=== PATIENT | female | born 1935 | race Caucasian/White ===

== ENCOUNTER 2019-12-20 13:10 | Inpatient (IN) | payer MEDICARE, SELFPAY ==
[2019-12-20] VITALS (17 sets, daily range): BP systolic 118–160; BP diastolic 61–87; PULSE 68–761; RESP 11–976; TEMP 36.3–37.9; O2SAT 19–97; BMI 22.1; BMI 19.6
--- NOTE | 2019-12-20 | DI.RAD.S_ITS ---
PROCEDURE: XR PELVIS 1-2V INDICATIONS: INTER-OP PELVIS TECHNIQUE: 2 intraoperative views of the pelvis and hip acquired. COMPARISON: [facility], , XR PELVIS 1-2V, 12/20/2019, 13:52. FINDINGS: Bones: Intraoperative devices prior to placement of arthroplasty prostheses are in expected positions. Soft tissues: Overlying surgical retractors are present, along with other intraoperative changes. IMPRESSION: 1. Limited intraoperative study obtained for surgical guidance demonstrates partial placement of a right hip prosthesis. Dictated by: David Alvarez M.D. on 12/20/2019 at 19:12 Approved by: David Alvarez M.D. on 12/20/2019 at 19:13
--- NOTE | 2019-12-20 13:43 | ED.FALL ---
HPI - Fall General Chief Complaint: Fall Stated Complaint: Fell last night, hips hurt, can't walk Time Seen by Provider: 12/20/19 13:24 Source: family () Mode of arrival: Wheelchair Limitations: no limitations History of Present Illness HPI Narrative: Patient is an 84-year-old female with a history of dementia here with her for evaluation of injuries that she sustained when she fell yesterday evening. Patient's was the 1 who provided all the HPI. Given the patient's history of dementia she was unable to provide any history. Patient's states that last evening the patient turned to her left hand lost her balance and fell landing on her right hip. She did not hit her head. There was no loss of consciousness. This fall was witnessed by her . states he had help the patient up. She was able to walk somewhat but she was very unstable last evening. He had to help her to the bathroom which he states that he has to do sometimes so was not all that concerned about this aspect of the injury. He stated that this morning she slept until 1000 hours which is late for her. When she woke up she was unable to stand. He had to go get a wheelchair to help her get around the house. Secondary to the inability to stand brought her into the emergency department for evaluation. Related Data Home Medications Medication Instructions Recorded Confirmed amlodipine [Norvasc] #0 12/17/16 gemfibrozil #0 12/17/16 levothyroxine [Synthroid] #0 12/17/16 Allergies Allergy/AdvReac Type Severity Reaction Status Date / Time hydrochlorothiazide Allergy Severe Unverified 05/22/17 12:29 [HYDROCHLOROTHIAZIDE] lisinopril [LISINOPRIL] AdvReac Intermediate COUGH Unverified 05/22/17 12:29 Review of Systems Review of Systems Narrative: Provided by ENT Ears, Nose, Mouth, and Throat: Reports disequilibrium Cardiovascular Cardiovascular: Denies dyspnea Respiratory Respiratory: Denies cough and Denies dyspnea Gastrointestinal Gastrointestinal: Denies change in bowel habits and Denies vomiting Musculoskeletal Comments: Hip pain Integumentary/Breasts Skin/Breast: Denies lesions and Denies rash Neurologic Neurologic: Denies behavioral changes and Reports disequilibrium Psychiatric Psychiatric: Denies behavioral changes Hematologic/Lymphatic Hematologic/Lymphatic: Denies easy bleeding and Denies easy bruising Patient History Medical History Cholelithiasis (Inactive) Dementia (Inactive) Depression (Inactive) Hyperlipemia (Inactive) Hypertension (Inactive) Hypothyroid (Inactive) Pancreatitis (Inactive) Social History Smoking Status: Never smoker Smoking Status: Never smoker alcohol intake frequency: 0-2 drinks per day Substance Use Type: does not use Exam Initial Vital Signs Initial Vital Signs: Vital Signs Temperature 99.5 F 12/20/19 13:37 Pulse Rate 88 12/20/19 13:37 Respiratory Rate 20 12/20/19 13:37 Blood Pressure 147/78 H 12/20/19 13:37 Pulse Oximetry 91 12/20/19 13:37 Const General: healthy appearing Limitations: other limitations (Dementia) HENMT Head: normal to inspection and normocephalic Resp Effort & Inspection: normal respiratory effort Auscultation: clear to auscultation bilaterally Cardio Rate: regular rate Rhythm: regular rhythm GI Inspection: non-distended Palpation: soft Skin Lesions: no lesions Rashes: no rashes Neuro General: patient alert and patient awake Cognition: abnormal cognition Extrem General: normal to inspection Other: Patient able to flex and extend bilateral ankles and knees without any discomfort. She did not appear to have any discomfort with palpation of her hips. I was able to flex and extend and internally and externally rotate bilateral hips without apparent pain. Psych Appearance: grossly normal and well kempt Scores GCS [place] coma scale eye opening: Spontaneous Ahsan coma scale verbal response: Words [place] coma scale motor response: Obey commands Ahsan coma scale total score: 13 Course Orders Ordered: ED Orders 12/20/19 13:44 XR pelvis 1-2V Stat 12/20/19 14:26 XR hip w pel if done RT 2V Stat 12/20/19 14:58 Consult to Orthopedic Surgery Stat 12/20/19 15:30 Basic Metabolic Panel Stat Complete Blood Count AUTO DIFF Stat 12/20/19 15:36 COVID19 -ED/INPAT/OR/L&D Stat Sodium Chloride (Normal Saline 0.9%) 1,000 mls @ 100 mls/hr IV CONT WILLARD Vital Signs Vital signs: Vital Signs - 8 hr 12/20/19 13:37 Temperature 99.5 F Pulse Rate 88 Respiratory Rate 20 Blood Pressure 147/78 H Pulse Oximetry 91 MDM - Fall Medical Records Attestation: I reviewed the patient's medical records. Lab Data Attestation: I reviewed the patient's lab results. Result diagrams: 12/20/19 15:30 12/20/19 15:30 Labs: Lab Results 12/20/19 12/20/19 12/20/19 Range/Units 15:30 15:30 15:36 WBC 8.8 (4.5-11.0) X10^3/uL RBC 5.05 (4.0-5.2) X10^6/uL Hgb 13.7 (12.0-16.0) g/dL Hct 41.0 (36-46) % MCV 81.3 (80-100) fL MCH 27.2 (26-34) PG MCHC 33.4 (30-36) % RDW 15.0 H (11.6-14.8) % Plt Count 234 (150-400) X10^3/uL Neut % (Auto) 82.9 H (50-75) % Lymph % (Auto) 9.8 L (25-40) % [place] % (Auto) 5.1 (3-14) % Eos % (Auto) 1.2 L (2-4) % Baso % (Auto) 1.0 (0-2) % Neut # (Auto) 7300 H (3714-0651) /uL Lymph # (Auto) 900 L (2920-2116) /uL [place] # (Auto) 400 (0-900) /uL Eos # (Auto) 100 (0-450) /uL Baso # (Auto) 100 (0-100) /uL Sodium 140 (137-145) mmol/L Potassium 3.7 (3.4-5.1) mmol/L Chloride 110 H (98-107) mmol/L Carbon Dioxide 27 (22-32) mmol/L BUN 21 H (7-17) mg/dL Creatinine 1.10 H (0.52-1.04) mg/dL Estimated GFR 47.3 L (>60) mL/min BUN/Creatinine Ratio 19.1 (6-22) Glucose 104 (80-110) mg/dL Calcium 9.7 (8.4-10.2) mg/dL COVID-19 PCR Negative (Negative) Imaging Data Extremity x-ray #1: Radiologist's Impression: [address] [id number] XRay Report Signed Patient: Karla Delatorre [facility]#: [id number] : 6Acct:[id number] Age/Sex: 84 / FDate of Service: 12/20/19 Loc: ED Accession Number: [id number] Procedure: XR pelvis 1-2V Ordering Provider: Torres Townsend D.O. PROCEDURE: XR PELVIS 1-2V INDICATIONS: pain after fall TECHNIQUE: 2 view(s) of the pelvis acquired. COMPARISON: None. FINDINGS: Bones: Mildly impacted subcapital right femoral neck fracture. Degenerative changes of the lower lumbar spine and left hip joint. No suspicious bony lesions. Soft tissues: Visualized bowel gas pattern is normal. No suspicious soft tissue calcifications. IMPRESSION: Mildly impacted right subcapital femoral neck fracture. Dictated by: Alireza Yung M.D. on 12/20/2019 at 13:19 Approved by: Alireza Yung M.D. on 12/20/2019 at 13:20 Extremity x-ray #2: Radiologist's Impression: [address] [address] XRay Report Signed Patient: Karla Delatorre [facility]#: [id number] : 6Acct:[id number] Age/Sex: 84 / FDate of Service: 12/20/19 Loc: ED Accession Number: [id number] Procedure: XR hip w pel if done RT 2V Ordering Provider: Torres Townsend D.O. PROCEDURE: XR HIP W PEL IF DONE RT 2V INDICATIONS: right fem neck fx TECHNIQUE: AP pelvis with lateral view(s) of the right hip(s). COMPARISON: None. FINDINGS: Bones: There is a mildly impacted right subcapital femoral neck fracture. Degenerative changes of the bilateral hips. Pelvic ring appears intact. No suspicious bony lesions. Soft tissues: The visualized bowel gas pattern is normal. No suspicious soft tissue calcifications. IMPRESSION: Mildly impacted right subcapital femoral neck fracture. Dictated by: Alireza Yung M.D. on 12/20/2019 at 13:46 Approved by: Alireza Yung M.D. on 12/20/2019 at 13:48 MDM Narrative Medical decision making narrative: This did appear to be a mechanical fall. She appears to be at baseline mental status per the who is at bedside. Initially patient seemed to not have any discomfort with movement or palpation of her hips however given the fact she cannot stand an x-ray was obtained. This did show an impacted right-sided femoral neck fracture. I did discuss the case with Dr. harmon with orthopedics who recommended making the patient NPO and admitting to the medicine service for surgery. I then discussed the case with Dr. oliver who is on-call for the patient's primary provider who will admit for further evaluation treatment. I did discuss the findings of the x-ray with the patient's at bedside. He expressed understanding and agreement. Discharge Plan Departure Patient Disposition: Admitted As Inpatient Clinical Impression: Fracture of femoral neck, right Qualifiers: Encounter type: initial encounter Fracture type: closed Qualified Code(s): S72.001A - Fracture of unspecified part of neck of right femur, initial encounter for closed fracture Dementia Qualifiers: Dementia type: unspecified type Dementia behavioral disturbance: without behavioral disturbance Qualified Code(s): F03.90 - Unspecified dementia without behavioral disturbance
--- NOTE | 2019-12-20 13:47 | PC.NURSE ---
Pt is unable to provide history due to dementia. Pt unable to participate in pain assessment.
--- NOTE | 2019-12-20 14:26 | DI.RAD.S_ITS ---
PROCEDURE: XR HIP W PEL IF DONE RT 2V INDICATIONS: right fem neck fx TECHNIQUE: AP pelvis with lateral view(s) of the right hip(s). COMPARISON: None. FINDINGS: Bones: There is a mildly impacted right subcapital femoral neck fracture. Degenerative changes of the bilateral hips. Pelvic ring appears intact. No suspicious bony lesions. Soft tissues: The visualized bowel gas pattern is normal. No suspicious soft tissue calcifications. IMPRESSION: Mildly impacted right subcapital femoral neck fracture. Dictated by: Alireza Yung M.D. on 12/20/2019 at 13:46 Approved by: Alireza Yung M.D. on 12/20/2019 at 13:48
[2019-12-20 15:41] LABS: Add Manual Diff / Slide Review NO; Basophils Absolute Auto 100 /uL (0-100); Eosinophils Absolute Auto 100 /uL (0-450); Eosinophils Percent Auto 1.2 % (2-4); Hemoglobin 13.7 g/dL (12.0-16.0); Lymphocytes Absolute Auto 900 /uL (1100-4500); Lymphocytes Percent Auto 9.8 % (25-40); Mean Corpuscular HGB Conc 33.4 % (30-36); Mean Corpuscular Hemoglobin 27.2 PG (26-34); Mean Corpuscular Volume 81.3 fL (80-100); Monocytes Absolute Auto 400 /uL (0-900); Monocytes Percent Auto 5.1 % (3-14); Neutrophils Absolute Auto 7300 /uL (1500-7000); Neutrophils Percent Auto 82.9 % (50-75); Platelet Count 234 X10^3/uL (150-400); Red Blood Cell Count 5.05 X10^6/uL (4.0-5.2); White Blood Cell Count 8.8 X10^3/uL (4.5-11.0)
[2019-12-20 16:02] LABS: BUN Creatinine Ratio 19.1 (6-22); Blood Urea Nitrogen 21 mg/dL (7-17); Calcium 9.7 mg/dL (8.4-10.2); Carbon Dioxide 27 mmol/L (22-32); Chloride 110 mmol/L (98-107); Estimated Glomerular Filt Rate 47.3 mL/min (>60); Glucose 104 mg/dL (80-110); HEMOLYSIS < 15 (0-50); Potassium 3.7 mmol/L (3.4-5.1); Sodium 140 mmol/L (137-145)
[2019-12-20 16:10] LABS: COVID19 -Nasal RAPID Negative (Negative)
--- NOTE | 2019-12-20 17:17 | P.HP_ITS ---
History of Present Illness History of Present Illness Date Patient Seen: 12/20/19 Time Patient Seen: 17:17 Chief complaint: Fell last night, hips hurt, can't walk Narrative: Patient is an 84-year-old female with a history of dementia here with her for evaluation of injuries that she sustained when she fell yesterday evening. Suraj is uanbel to provide history due to dementia. Patient's provided all the HPI. Patient's states that last e vening the patient turned to her left hand lost her balance and fell landing on her right hip. She did not hit her head. There was no loss of consciousness. This fall was witnessed by her . states he had help the patient up. She was able to walk somewhat but she was very unstable last evening. He had to help her to the bathroom which he states that he has to do sometimes so was not all that concerned about this aspect of the injury. When she woke up she was unable to stand. She is a household and community ambulator without assisstive devices. Patient History Medical History Cholelithiasis (Inactive) Dementia (Inactive) Depression (Inactive) Hyperlipemia (Inactive) Hypertension (Inactive) Hypothyroid (Inactive) Pancreatitis (Inactive) Family & Social History Social History: household members spouse Prior Living Arrangements House Safety & Behavioral: Feels Safe in Current Yes Environment Been Physically Hurt or No Threatened By a Person Suicidal Ideation Description None Suicide Plan Description No Plan Tobacco & Substance use: Smoking Status Never smoker alcohol intake current alcohol intake frequency holiday/special occasion Substance Use Type does not use Meds Home Medications and Allergies Home Medications Medication Instructions Recorded Confirmed Type amlodipine [Norvasc] #0 12/17/16 History gemfibrozil #0 12/17/16 History levothyroxine [Synthroid] #0 12/17/16 History Allergies Allergy/AdvReac Type Severity Reaction Status Date / Time hydrochlorothiazide Allergy Severe Unverified 05/22/17 12:29 [HYDROCHLOROTHIAZIDE] lisinopril [LISINOPRIL] AdvReac Intermediate COUGH Unverified 05/22/17 12:29 Exam Vital Signs (past 8 hours): - 12/20/19 13:37 Temperature 99.5 F Pulse Rate 88 Respiratory Rate 20 Blood Pressure 147/78 H Pulse Oximetry 91 Oxygen Delivery Method Room Air Narrative Exam Narrative: NV intact RLE, no skin breaks over the right hip. Objective Labs Result Diagrams: 12/20/19 15:30 12/20/19 15:30 Labs: Laboratory Results - last 24 hr 12/20/19 12/20/19 12/20/19 15:30 15:30 15:36 WBC 8.8 RBC 5.05 Hgb 13.7 Hct 41.0 MCV 81.3 MCH 27.2 MCHC 33.4 RDW 15.0 H Plt Count 234 Neut % (Auto) 82.9 H Lymph % (Auto) 9.8 L [place] % (Auto) 5.1 Eos % (Auto) 1.2 L Baso % (Auto) 1.0 Neut # (Auto) 7300 H Lymph # (Auto) 900 L [place] # (Auto) 400 Eos # (Auto) 100 Baso # (Auto) 100 Sodium 140 Potassium 3.7 Chloride 110 H Carbon Dioxide 27 BUN 21 H Creatinine 1.10 H Estimated GFR 47.3 L BUN/Creatinine Ratio 19.1 Glucose 104 Calcium 9.7 COVID-19 PCR Negative Assessment & Plan Assessment & Plan narrative: Patient is a 84 yo pleasantly demented female. She had a GLF yesterday evening witnessed by her . She was able to minimally ambulate that evening but has been unable to ambulate today. She was brought to the ER for evaluation where a right valgus imapceted femoral neck fracture was identified. Patient would benefit from hemiarthropalsty due to ability to weight bear immediately. In addition the fracture angle is steep which increases the risk of nonunion/hardware failure. I discussed the risks and benefits of surgery with the patient and her (whom signs her consents). Risks include but are not limited to infection, dislocation, damage to local structures such as vessels and nerves, need for future surgery, iatrogenic fracture, DVT, PE, etc. - OCTOR for right hip hemiarthoplasty - NWB RLE - NPO Time Spent With Patient Time with patient: 15-24 minutes Quality VTE Deep Vein Thrombosis/Pulmonary Embolism Present on Admission: No
--- NOTE | 2019-12-20 17:27 | PM.PREOP ---
Pre-operative Note COVID-19 COVID-19 status: Negative Result date/Date tested (Pos, Neg/Pending): 12/20/19 Interval Note History & Physical reviewed/Exam performed by Physician: Yes Changes to H&P: No H&P completed within 30 days and has changed as indicated here:: Plan for right hip hemiarthroplasty
[2019-12-20] MEDS: LACTATED RINGERS 1,000 ML 42 ML IV ×2 (17:33→19:02)
[2019-12-20] MEDS: CEFAZOLIN 2 GM/100 ML FROZ.PIGGY IV (17:36)
--- NOTE | 2019-12-20 17:38 | SUR.HOLD ---
1725 TO Pacu for OR hold, prepared for surgery and took one set of VS. did not have time for anything else. Anesthesia spoke with patient and spouse.
--- NOTE | 2019-12-20 17:59 | SUR.HOLD ---
1730 late entry Pt had on a thin, yellow band with clear stones. Removed and given directly to her in PACU holding.
[2019-12-20] MEDS: TRANEXAMIC ACID 1,000 MG VIAL 1000 MG IV ×2 (18:08→19:04)
--- NOTE | 2019-12-20 18:15 | SUR.OPER ---
Lateral on padded OR bed. Gel axillary roll. Arms secured on padded armboard with pillow supporting top arm. Padded hip positioner braces x4 - anterior and posterior chest and pelvis. Additional gel pad used anterior pelvis. Gel pad under bottom leg from knee to foot and secured with tape over sheet.
[2019-12-20] MEDS: KETOROLAC 30 MG/ML VIAL IV (18:23)
[2019-12-20] MEDS: MORPHINE 4 MG/ML INJ INJ (18:23)
[2019-12-20] MEDS: ROPIVACAINE 0.5% PF 30ML 60 ML INJ (18:23)
--- NOTE | 2019-12-20 19:40 | P.OP_ITS ---
Operative Date/Time/Diagnoses Date of procedure: 12/20/19 Time of procedure: 19:40 Pre-op diagnosis: right intra-capsular femoral neck fracture Post-op diagnosis: same Procedure & Clinicians Procedure: Right hip hemiarthroplasty Same procedure as scheduled: Yes Indications: Patient sustained a right intracapsular valgus impacted femoral neck fracture after ground level fall. Due to the high angle there is risk for nonunion and or hardware failure so hemiarthroplasty was selected in addition patient has dementia and would not be able to be partial weight-bearing. Surgeon: Kash Leo Network Security Officer: Domingo Golden Anesthesia Type: General Operative Notes Findings: Valgus impacted right femoral neck fracture, intracapsular hematoma Closure Type: primary Specimen(s): none sent Prosthetic devices, grafts, tissues, transplants, or devices: [employer] Synergy size 14 femoral stem Bipolar head 50 x 28 +0 mm Estimated Blood Loss (mL): 200 Procedure in detail: Patient was met up on the floors. I had a long discussion with the patient and her regarding her fracture pattern as well as possible treatment options. Patient has dementia and her signed her consents for her. I discussed with them the risks and benefits of right hip hemiarthroplasty including the risk of infection, dislocations, need for future surgery, incomplete relief of symptoms, iatrogenic injury, fracture, DVT, PE, , etc.. of patient demonstrates understanding of the risks and benefits of a right hemiarthroplasty for femoral neck fracture. Both agreed to proceed. The right hip was then marked. Patient was brought back in the operating room where she was transferred onto the operating room table. She was induced under general anesthesia. She was then placed in left lateral decubitus position all bony prominences were well padded. The right lower extremity then prepped and draped in normal sterile fashion. A surgical time-out was performed verifying the site and side of surgery as well as the name of the patient. A 10 cm long incision starting at the midpoint of the greater trochanter aiming proximally 40? superior-posterior was made in the skin using a 10. Blade. Electrocautery was used down to the level of the ITB band superior gluteal fascia. A new 10. Blade was then used to incise the superior gluteal fashion the ITB band. A Cobra was then placed underneath the gluteus medius and Meyerding was placed posteriorly to give us good exposure to the short external rotators. A curved osteotome was then placed underneath the piriformis and piriformis was released off the back of the greater trochanter piriformis was then tagged and the other short external rotators were then released down to the level of the quadratus femoris. The gluteus minimus was then elevated a Cobra was placed underneath the gluteus minimus this gave us good capsular exposure and L-shaped capsulotomy was then performed in accordance capsulotomy was tagged with a FiberWire suture. We encountered dark hematoma at this point. This was suctioned away the hip was then dislocated and the femoral neck fracture was viewed. A freshen up femoral neck cut was then performed using oscillating saw blade in the femoral head was removed. Bony fragments were removed from the acetabular cup. The femoral neck elevator was then placed underneath the anterior aspect of the femoral neck. We began hand reaming with straight reamers and then she got to a size 12. The began broaching with a size 8 broach followed sequentially up to a size 12. The calcar planed off the size 12 broach and standard neck length trial was placed followed by a 50+ 0 head hip was then dislocated and found to be adequately stable through range of motion including position of sleep as well as flexion and 90? and internal rotation to 70?. X-rays were taken to verify leg length as well as to confirm canal fit of the femoral stem. The stem was in varus and leg length appeared couple mm short. Trial components were then removed I then used a lateralized Reamer followed by hand reamers up to a size 14. Then broached up to size 14 broach and again trialed with a size standard offset neck length with a 50+ 0 head this was stable in position of sleep as well as flexion to 90? and internal rotation to approximately 75 ?. Trial components were removed a size 14 final stem was selected and placed. The stem sat up 1-2 mm from our broach height. Selected a 50+ 0 bipolar head which was then malleted into place on the trunnion. The hip was reduced to final time the hip was then thoroughly irrigated with normal saline followed by injection of local anesthetic into the capsule and the periarticular soft tissues followed by closure of the capsulotomy with a running Ethibond suture and removal of the FiberWire tag suture. The piriformis did not have enough length to pass a limb through the greater trochanter so was repaired back the abductor tendon. The ITB band was closed using 1. Vicryl interrupted fashion followed by running Vicryl in the superior gluteal fascia. A running 1. Vicryl was then used in the fat layer followed by interrupted subcutaneous 2-0 Vicryl followed by nacho on skin an Aquacel dressing Complications: none Post-operative Condition: stable Disposition: PACU Plan for aftercare: Weightbearing as tolerated right lower extremity, posterior hip precautions, 24 hours postop antibiotics, aspirin 81 mg b.i.d. for 6 weeks for DVT prophylaxis.
--- NOTE | 2019-12-20 19:41 | SUR.PHASEI ---
1924 to PACU, sleeping, resp even and regular, oxygen for low sat. skin warm and dry.
--- NOTE | 2019-12-20 19:53 | SUR.PHASEI ---
desat to 90%; arouses to voice, able to wiggle R toes (Dr Leo checked on the patient), opens eyes slightly. Does not respond to 'take a deep breathe'. Sat did not increase; place on non-rebreather mask, sat up to 94% on 15 liters.
--- NOTE | 2019-12-20 20:11 | SUR.PHASEI ---
Report called to Vanessa, she is comfortable accepting patinet on 11L non-rebreather mask
--- NOTE | 2019-12-20 20:25 | SUR.PHASEI ---
2014 to room 215 on O2 at 15L non-rebreather mask (other setting on the tank was lower than 11L) - to 11L in the room. Report updates, spouse in the room. VSS. SCD''s on. Bed down and locked, DIANA Rose present, finishing settling patient. Staff informed that her has her ring. He acknowledged it and decided to go home -- states that he has her ring, clothing bag, and meds. No questions from staff or spouse. Pt. opens eyes to voice, is not talking
--- NOTE | 2019-12-20 20:26 | PC.NURSE ---
Patient back from PACU at 2019. Drowsy but wakes easily. On None re-breather 15L sats 97%. Drsg to Rt side of hip CDI, hip wedge in place between legs and secured to lower legs. SCD's placed. Patient was in room when patient arrived, but left shortly after. took patients clothes, home medications and wedding ring. Patient denies any pain at this time.
[2019-12-20 21:26] LABS: Add Manual Diff / Slide Review NO; Basophils Absolute Auto 0 /uL (0-100); Basophils Percent Auto 0.4 % (0-2); Eosinophils Absolute Auto 0 /uL (0-450); Eosinophils Percent Auto 0.4 % (2-4); Hematocrit 38.6 % (36-46); Hemoglobin 12.7 g/dL (12.0-16.0); Lymphocytes Absolute Auto 400 /uL (1100-4500); Lymphocytes Percent Auto 4.4 % (25-40); Mean Corpuscular HGB Conc 33.1 % (30-36); Mean Corpuscular Hemoglobin 27.1 PG (26-34); Mean Corpuscular Volume 82.1 fL (80-100); Monocytes Absolute Auto 300 /uL (0-900); Monocytes Percent Auto 2.8 % (3-14); Neutrophils Absolute Auto 8400 /uL (1500-7000); Platelet Count 194 X10^3/uL (150-400); Red Cell Distribution Width 14.5 % (11.6-14.8); White Blood Cell Count 9.1 X10^3/uL (4.5-11.0)
[2019-12-20] MEDS: ACETAMINOPHEN 325 MG TABLET 650 MG PO (22:46)
[2019-12-20] MEDS: DOCUSATE 100 MG CAPSULE PO (22:46)
[2019-12-20] MEDS: ASPIRIN EC 81 MG TABLET PO (22:46)
[2019-12-20] MEDS: LACTATED RINGERS 1,000 ML 75 ML IV (22:47)
[2019-12-21] VITALS (10 sets, daily range): BP systolic 105–146; BP diastolic 58–85; PULSE 72–119; RESP 14–24; TEMP 36.3–37.1; O2SAT 89–100
--- NOTE | 2019-12-21 01:50 | PC.NURSE ---
Addendum entered by Karla Patel R.N. 12/21/19 06:39: O2 sat this morning is 96% on 2L/min oxygen so decreased to 1L/min Original Note: Patient is alert but not verbally responding to questions; will smile and make laughing type sound. Did not follow direction. Breath sounds diminished with shallow respirations. Is on oxygen at 3L/min with sat currently at 98% so decreased oxygen to 2L/min and will continue to monitor and titrate as able. HRR. BT hypoactive; abdomen is soft. Indwelling catheter is patent; urine is clear yellow. Aquacel dressing to right hip is intact with couple spots of drainage noted. Wearing foam abductor wedge between legs. Needing to be repositioned q2h as not doing this by herself. Wearing bilateral calf SCD's. Pedal pulses strong and feet warm to touch. FLACC score is 0. Fall risk score is high at RN discretion and bed alarm is activated.
[2019-12-21] MEDS: CEFAZOLIN 2 GM/100 ML FROZ.PIGGY IV ×2 (02:03→09:49)
[2019-12-21] MEDS: LEVOTHYROXINE 50 MCG TABLET PO (05:36)
[2019-12-21 05:43] LABS: Hematocrit 34.4 % (36-46); Hemoglobin 11.4 g/dL (12.0-16.0)
[2019-12-21 05:51] LABS: BUN Creatinine Ratio 19.2 (6-22); Blood Urea Nitrogen 19 mg/dL (7-17); Calcium 8.9 mg/dL (8.4-10.2); Carbon Dioxide 24 mmol/L (22-32); Chloride 109 mmol/L (98-107); Estimated Glomerular Filt Rate 53.4 mL/min (>60); Glucose 122 mg/dL (80-110); HEMOLYSIS < 15 (0-50); Potassium 3.7 mmol/L (3.4-5.1); Sodium 137 mmol/L (137-145)
[2019-12-21] MEDS: ACETAMINOPHEN 325 MG TABLET 650 MG PO ×3 (08:22→20:40)
[2019-12-21] MEDS: DOCUSATE 100 MG CAPSULE PO ×2 (08:22→20:40)
[2019-12-21] MEDS: ASPIRIN EC 81 MG TABLET PO ×2 (08:22→20:40)
[2019-12-21] MEDS: AMLODIPINE 5 MG TABLET PO (08:22)
[2019-12-21] MEDS: gemfibroziL 600 MG TABLET PO ×2 (08:23→17:21)
--- NOTE | 2019-12-21 08:35 | PM.HP.1 ---
History of Present Illness History of Present Illness Date Patient Seen: 12/21/19 Time Patient Seen: 08:37 Date of Onset of Symptoms: 12/19/19 Chief complaint: Fell last night, hips hurt, can't walk Narrative: 84-year-old female who is followed by Dr. Buck as an outpatient for hypertension, hyperlipidemia and hypothyroidism is brought to the ER due to inability to walk after fall 12 hours prior. Patient was found to have a hip fracture and was taken to the OR to have this fixed. Patient lives with her in a home here in in a [place] and otherwise denies any complaints. She had an unwitnessed fall she states that she fell backwards. This history is per the and the ER report. They deny any history of loss of consciousness or hitting her head or other injuries. It does not appear that she was syncopal or presyncopal. She has otherwise been in her usual state health. She has had no fever, chills, vomiting, diarrhea. She has had no rashes. She has had no orthopedic complaints. She has never had previous injury to her hips. She denies chest pain or shortness of breath or cough or palpitations. Past medical history: 1. Hypertension 2. Hyperlipidemia 3. Hypothyroidism 4. Moderate to severe dementia based on exam today Medications Amlodipine 5 mg daily Gemfibrozil 600 mg daily Levothyroxine 50 mcg daily Allergies hydrochlorothiazide Lisinopril which causes a cough Past surgical history: Unremarkable Helped her to behavior: Patient is active in her own on any regular basis. Patient does not smoke and never was a smoker. Patient occasionally uses alcohol. But not on a regular basis. Social history: Patient lives in a home with her here and [place] Family history: Unable to obtain at this time but no pertinent family history found in the chart or her previous dictations. Patient History Medical History Cholelithiasis (Inactive) Dementia (Inactive) Depression (Inactive) Hyperlipemia (Inactive) Hypertension (Inactive) Hypothyroid (Inactive) Pancreatitis (Inactive) Family & Social History Social History: household members spouse Prior Living Arrangements House Safety & Behavioral: Feels Safe in Current Yes Environment Been Physically Hurt or No Threatened By a Person Suicidal Ideation Description None Suicide Plan Description No Plan Tobacco & Substance use: Smoking Status Never smoker alcohol intake current alcohol intake frequency holiday/special occasion Substance Use Type does not use Meds Home Medications and Allergies Home Medications Medication Instructions Recorded Confirmed Type amlodipine 5 mg PO DAILY 12/20/19 12/20/19 History gemfibrozil 600 mg PO DAILY 12/20/19 12/20/19 History levothyroxine 50 mcg PO DAILY 12/20/19 12/20/19 History Allergies Allergy/AdvReac Type Severity Reaction Status Date / Time hydrochlorothiazide Allergy Severe Unverified 05/22/17 12:29 [HYDROCHLOROTHIAZIDE] lisinopril [LISINOPRIL] AdvReac Intermediate COUGH Unverified 05/22/17 12:29 Review of Systems Review of Systems ROS: Yes All systems reviewed with the patient and are negative except as otherwise documented Exam Vital Signs (past 8 hours): - 12/21/19 05:34 12/21/19 07:00 Temperature 97.4 F L Pulse Rate 72 Respiratory Rate 16 Blood Pressure 123/69 Pulse Oximetry 96 92 Oxygen Delivery Method Nasal Cannula Oxygen Flow Rate 1 Narrative Exam Narrative: Patient lying in hospital bed in no apparent distress. She is eating her breakfast and is also eating a Kleenex. She is unable to answer any questions but just laughs. She denies any pain. Vital signs are stable HEENT: No mucosal lesions. Mucous membranes moist and pink Neck: Supple without adenopathy or thyromegaly, no bruit, no jugular venous distension Chest: Clear to auscultation without wheezes rhonchi or crackles Cor: Regular rate and rhythm without murmur rubs or gallops. S1-S2 distant Abdomen: Positive bowel sounds, soft, nontender, nondistended Extremities: No edema, pulses intact Skin exam shows no rashes. No evidence of trauma Neurologic exam is nonfocal other than moderate to severe dementia. Able to move all extremities but difficulty following directions Objective Labs Result Diagrams: 12/21/19 05:25 12/21/19 05:25 Labs: Laboratory Results - last 24 hr 12/20/19 12/20/19 12/20/19 15:30 15:30 15:36 WBC 8.8 RBC 5.05 Hgb 13.7 Hct 41.0 MCV 81.3 MCH 27.2 MCHC 33.4 RDW 15.0 H Plt Count 234 Neut % (Auto) 82.9 H Lymph % (Auto) 9.8 L [place] % (Auto) 5.1 Eos % (Auto) 1.2 L Baso % (Auto) 1.0 Neut # (Auto) 7300 H Lymph # (Auto) 900 L [place] # (Auto) 400 Eos # (Auto) 100 Baso # (Auto) 100 Sodium 140 Potassium 3.7 Chloride 110 H Carbon Dioxide 27 BUN 21 H Creatinine 1.10 H Estimated GFR 47.3 L BUN/Creatinine Ratio 19.1 Glucose 104 Calcium 9.7 COVID-19 PCR Negative 12/20/19 12/21/19 12/21/19 21:15 05:25 05:25 WBC 9.1 RBC 4.70 Hgb 12.7 11.4 L Hct 38.6 34.4 L MCV 82.1 MCH 27.1 MCHC 33.1 RDW 14.5 Plt Count 194 Neut % (Auto) 92.0 H Lymph % (Auto) 4.4 L [place] % (Auto) 2.8 L Eos % (Auto) 0.4 L Baso % (Auto) 0.4 Neut # (Auto) 8400 H Lymph # (Auto) 400 L [place] # (Auto) 300 Eos # (Auto) 0 Baso # (Auto) 0 Sodium 137 Potassium 3.7 Chloride 109 H Carbon Dioxide 24 BUN 19 H Creatinine 0.99 Estimated GFR 53.4 L BUN/Creatinine Ratio 19.2 Glucose 122 H Calcium 8.9 COVID-19 PCR Assessment & Plan Assessment & Plan narrative: 84-year-old female with a history of hypertension, hypothyroidism and hyperlipidemia with a ground level fall and sustained a hip fracture which has already been surgically repaired. Patient will be admitted to hospital for postop recovery. Assessment 1. Hip fracture status post ORIF Plan: Continue per surgery. Pain appears well-controlled. Assessment 2. Hypothyroidism without current issues Plan: Will continue with levothyroxine Assessment 3. Hypertension appears well controlled Plan: Will continue outpatient medications. Will follow with you. Will monitor closely. Assessment 4. Hyperlipidemia on gemfibrozil. Assessment 5. Dementia unclear severity. Will likely benefit from a seated cholinesterase inhibitors if these have not been started. We will follow in the hospital. 40 minutes spent with patient and reviewing chart, meeting with patient examining patient and formulating plan of care Code status is DNR COVID-19 COVID-19 status: Negative Result date/Date tested (Pos, Neg/Pending): 12/20/19 Quality VTE Deep Vein Thrombosis/Pulmonary Embolism Present on Admission: No
--- NOTE | 2019-12-21 09:45 | PM.PNPO.1 ---
Subjective Subjective Date Patient Seen: 12/21/19 Time Patient Seen: 07:46 Interval history: Patient has dementia. She is unable to answer questions. Exam Vital Signs (past 8 hours): - 12/21/19 05:34 12/21/19 07:00 12/21/19 08:39 Temperature 97.4 F L Pulse Rate 72 Respiratory Rate 16 14 Blood Pressure 123/69 Pulse Oximetry 96 92 94 12/21/19 09:22 Temperature 97.5 F L Pulse Rate 78 Respiratory Rate 24 Blood Pressure 137/80 Pulse Oximetry 90 L Oxygen Delivery Method Room Air Oxygen Flow Rate 1 Narrative Exam Narrative: 80-year-old female resting comfortably in bed in no apparent distress. She laughs when you ask her questions. Sensation grossly intact to light touch distal right lower extremity. Motor functions intact right distal lower extremity. Both legs are warm and dry. Objective Labs Result Diagrams: 12/21/19 05:25 12/21/19 05:25 Labs: Laboratory Results - last 24 hr 12/20/19 12/20/19 12/20/19 15:30 15:30 15:36 WBC 8.8 RBC 5.05 Hgb 13.7 Hct 41.0 MCV 81.3 MCH 27.2 MCHC 33.4 RDW 15.0 H Plt Count 234 Neut % (Auto) 82.9 H Lymph % (Auto) 9.8 L [place] % (Auto) 5.1 Eos % (Auto) 1.2 L Baso % (Auto) 1.0 Neut # (Auto) 7300 H Lymph # (Auto) 900 L [place] # (Auto) 400 Eos # (Auto) 100 Baso # (Auto) 100 Sodium 140 Potassium 3.7 Chloride 110 H Carbon Dioxide 27 BUN 21 H Creatinine 1.10 H Estimated GFR 47.3 L BUN/Creatinine Ratio 19.1 Glucose 104 Calcium 9.7 COVID-19 PCR Negative 12/20/19 12/21/19 12/21/19 21:15 05:25 05:25 WBC 9.1 RBC 4.70 Hgb 12.7 11.4 L Hct 38.6 34.4 L MCV 82.1 MCH 27.1 MCHC 33.1 RDW 14.5 Plt Count 194 Neut % (Auto) 92.0 H Lymph % (Auto) 4.4 L [place] % (Auto) 2.8 L Eos % (Auto) 0.4 L Baso % (Auto) 0.4 Neut # (Auto) 8400 H Lymph # (Auto) 400 L [place] # (Auto) 300 Eos # (Auto) 0 Baso # (Auto) 0 Sodium 137 Potassium 3.7 Chloride 109 H Carbon Dioxide 24 BUN 19 H Creatinine 0.99 Estimated GFR 53.4 L BUN/Creatinine Ratio 19.2 Glucose 122 H Calcium 8.9 COVID-19 PCR Assessment & Plan Post-op Postoperative Procedures: Procedures Operation Date: 12/20/19 17:30 Actual Procedures Side Surgeon p Hip Hemiarthroplasty Right Kash Leo MD Postop day 1 status post right hip hemiarthroplasty. Weightbearing as tolerated right lower extremity. Posterior hip precautions, 24 hours postop antibiotics, aspirin 81 mg b.i.d. for 6 weeks. Patient has history of hypothyroidism, hypertension, hyperlipidemia, dementia being followed by Medicine. Patient will mobilize with physical therapy and likely need long-term facility placement. Quality VTE Deep Vein Thrombosis/Pulmonary Embolism Present on Admission: No
--- NOTE | 2019-12-21 10:04 | DI.RAD.S_ITS ---
PROCEDURE: XR PELVIS 1-2V INDICATIONS: post op right hip hemiathroplasty TECHNIQUE: 1 view of the lower pelvis acquired. COMPARISON: [facility], , XR PELVIS 1-2V, 12/20/2019, 18:30. FINDINGS: Bones: Patient is status post right hip arthroplasty, with hardware components in expected positions. The hip joint appears congruent. The visualized bony structures appear intact. Soft tissues: Overlying postoperative changes are noted. No suspicious soft tissue densities. IMPRESSION: Expected appearance of the right hip total arthroplasty. Dictated by: Roman Clark M.D. on 12/21/2019 at 11:52 Approved by: Roman Clark M.D. on 12/21/2019 at 11:52
--- NOTE | 2019-12-21 12:05 | PT.IIE ---
Current Diagnoses Unspecified intracapsular fracture of right femur, initial encounter for closed fracture (12/20/19) Surgery Performed Operation Date: 12/20/19 17:30 Actual Procedures p Hip Hemiarthroplasty(Right) - Kash Leo MD Medical History (Last Reviewed 12/21/19 @ 08:35 by Ines Robbins MD) Cholelithiasis (Inactive) Dementia (Inactive) Depression (Inactive) Hyperlipemia (Inactive) Hypertension (Inactive) Hypothyroid (Inactive) Pancreatitis (Inactive) Physical Therapy Inpatient Evaluation/Re-Eval M1 PT/OT-IP Prior Functional Status Start: 12/21/19 08:38 Freq: NEEDED Status: Active Protocol: Document 12/21/19 12:04 AW (Rec: 12/21/19 12:31 AW [id number]) Medical Review Prior Functional Status Medical History Reviewed Yes Communication Pt has dementia, responds appropriately on occasion, but typically only laughs in response to questions. Pt's spouse was in room for this encounter and provided all relevant history. Mobility and Gait Pt is typically independent without assistive device. She is accustomed to climbing stairs in her home. Activities of Daily Living and IADL's Pt requires assist with all I/ ADL's. Her , Rui, provides all assist. She has both a large jetted bathtub and a walk in shower on the main level. She prefers the tub. Prior Functional Level (Other details) Pt had a CVA in ~2017. She was admitted to [facility] and then had a rehab stay at [facility]. She had home health services when she discharged from rehab. Social History Household Members spouse Living Arrangements House Number of Floors (Floors) Two Floors Number of Stairs To Enter/Railing? House is built into a hill. Pt has level entry to the home on the main/upper level where her bedroom, bathroom, kitchen , laundry are located. A family room, office, and craft room are downstairs but pt will not need to access the lower level. Home Environment Standard Height Toilet,Walk in Shower,Tub/Shower,Built-In Shower Seat Home Equipment Straight Cane,Manual Wheelchair,Raised Toilet Seat w/Armrests,Bed Rails,Grab Bars In Shower Additional Social History Comment Pt lives on [facility] with her spouse, Rui, who provides all assist. Her bed is tall and she has a homemade /PVC bed rail which she uses to climb into bed with right knee on the bed first and then pulling up. The couple have a daughter who is a chiropractor living and practicing in [place]. M2 PT-IP Current Condition Start: 12/21/19 08:38 Freq: NEEDED Status: Active Protocol: Document 12/21/19 12:04 AW (Rec: 12/21/19 12:31 AW [id number]) Physical Therapy Current Condition Current Condition Evaluation Date 12/21/19 Treatment Diagnosis R femoral neck fracture s/p hemiarthoplasty; difficulty in walking Onset Date 12/19/19 Precautions Posterior Hip Precautions No Hip Flexion > 90 degrees,No Hip Internal Rotation,No Hip Adduction Other Precautions foam abduction pillow on at rest at all times Weight Bearing Status Weight Bearing Status Weight Bear as Tolerated Allowed Weight Bearing Amount (enter % WBAT with posterior or #) (%) precautions. Current activity order is ambulate as tolerated. M3 PT-IP Subjective Start: 12/21/19 08:38 Freq: NEEDED Status: Active Protocol: Document 12/21/19 12:04 AW (Rec: 12/21/19 12:31 AW [id number]) Subjective Physical Therapy Visit Type Type Initial Evaluation Visit Start Time 11:20 Visit Stop Time 12:00 Total Visit Minutes 40 Notes Pt's , Rui, is present throughout evaluation and provides all history. SPT David present and assisting with line management during mobility. Number of SECONDARY SET UP MAN Visits 0 Physical Therapy Visit Comments Patient Comments Pt laughs in response to all questions. Patient Goals Pt's spouse believes her care needs will exceed his capacity and that she will likely need SNF rehab. Therapy Pain Assessment Pain When Pain Assessed During Mobility FLACC Pain Scale Face Occasional grimace/frown Legs Normal position; relaxed Activity Quiet, moves easily Cry No cry (awake or asleep) Consolability Content, relaxed FLACC Total 1 M4 PT-IP Mobility and Gait Start: 12/21/19 08:38 Freq: NEEDED Status: Active Protocol: Document 12/21/19 12:04 AW (Rec: 12/21/19 12:31 AW [id number]) PT-Bed Mobility Assessment Supine to Sit Supine to Sit Maximum Assistance,2 Person Assistance,Head of Bed Elevated Scooting Scooting to Edge of Bed Maximum Assistance PT-Transfer Assessment Sit to and From Stand Sit to and from Stand Moderate Assistance,1 Person Assistance Equipment Transfer Assistive Device Gait Belt,Front Wheeled Walker Orthotic/Prosthetic Devices or Brace: No Transfers Transfer Destination Chair Transfer Technique Stand Step Pivot Transfer Ability Level of Assist Minimal Assistance,2 Person Assistance Comments Mobility Comments Pt was lying in the bed affably laughing as PT and SPT entered the room. With HOB raised ~30 degrees, pt required max 2PA for supine to sit with SPT behind pt and PT in front to swivel hips toward right side EOB. Pt grimaced but did not cry out in pain. Pt was instructed to move toward EOB but was unable to follow directions. She needed max assist to scoot enough to get her feet on the floor. With FWW, pt needed mod 1PA to stand and then max cues + min 2PA to advance her feet for step pivot transfer to bedside chair set up on her right. Pt needed verbal and tactile cues to guide her hands to the chair arms. Once sitting, pt was positioned with legs elevated, wedge pillow placed between legs, call light and needs placed within reach. Pt tends to reach forward in sitting position and will require constant supervision to maintain posterior hip precautions. Pt's spouse remained in the room. Gait Assessment Gait Gait Assistance Required: Minimum Assistance,2 Person Assist Distance (Feet) 3 Able to Maintain Weight Bearing Status Yes During Gait Assistive Devices Assistive Device Gait Belt,Front Wheeled Walker Orthotic/Prosthetic Devices or Brace: No Gait Deviations General Gait Pattern Antalgic,Decreased Stride Length,Decreased Feet Clearance,Flexed Trunk,Step-to Gait Factors Limiting Gait Function Factors Limiting Gait Function Decreased Activity Tolerance, Decreased Strength,Difficulty Following Directions,Limited Range of Motion,Pain,Poor Balance,Poor Safety Awareness Comments Gait Comments Pt required verbal cues for walker management and occasional tactile cues to advance her LLE. Pt was able to bear weight on RLE with mild grimacing but no other overt signs of pain. Stair Climbing Assessment Comments Stair Climbing Comments Not assessed. No need to access stairs at home. PT-Balance Assessment Sitting Balance and Reactions Static Sitting Balance Ability Good Dynamic Sitting Balance Ability Fair Standing Balance and Reactions Static Standing Balance Ability Poor Dynamic Standing Balance Ability Poor Device Used FWW M5 PT-IP Objective Assessments Start: 11/09/20 08:38 Freq: NEEDED Status: Active Protocol: Document 12/21/19 12:04 AW (Rec: 12/21/19 12:31 AW [id number]) Orientation Orientation/Cognition Level of Alertness Confusional State Orientation Name Safety Awareness Decreased Safety Awareness Memory Description Short Term Impaired,Process Description Writer Impaired Comments Pt has dementia and is essentially non-verbal though she does laugh and is occasionally able to follow simple commands. Gross Range of Motion Lower Extremity ROM Assessment Right Impaired Strength Lower Extremity Strength Assessment Right Impaired Sensation Assessment Comments Sensation Comments Unable to assess due to cognition M6 PT-IP Treatment Start: 12/21/19 08:38 Freq: NEEDED Status: Active Protocol: Document 12/21/19 12:04 AW (Rec: 12/21/19 12:31 AW [id number]) Physical Therapy Treatment Exercises Exercises Ankle Pumps Education Education Provided Precautions,Weight Bearing Status,Post-Op Packet,Safety Other Treatments Other Treatment Performed Provided education on role of PT, plan of care, weightbearing status, posterior hip precautions, and safe use of FWW. Pt will have limited to no carryover of precautions and will require 24/7 assist/supervision. M7 PT-IP Assessment and Plan Start: 12/21/19 08:38 Freq: NEEDED Status: Active Protocol: Document 12/21/19 12:04 AW (Rec: 12/21/19 12:31 AW [id number]) PT Summary Assessment and Plan Potential Rehabilitation Potential Fair Status of Condition at Evaluation Stable Summary Impairments Pain,ROM,Strength,Balance, Cognition,Bed Mobility, Transfers,Gait,Activity Tolerance Assessment Summary Karla is an 84 yo woman admitted with right femoral neck fracture s/p hemiarthroplasty. Pt is to observe posterior hip precautions. She has dementia and her provides all assist at their [facility]. She is typically independent with mobility including stairs. On evaluation, pt is able to follow some simple commands but requires 2-person assist for most mobility and constant supervision to maintain posterior hip precautions. Karla will not be safe for discharge to home and will require 24/7 assist with all mobility and continued rehab such as SNF rehab at discharge to improve her functional mobility and her ability to participate in her own care. Goals Bed Mobility Goal Contact Guard Assistance Transfer Goal Contact Guard Assistance,Front Wheeled Walker Gait Goal Contact Guard Assistance,Front Wheel Walker Gait Distance 75 Days to Meet Goals 10 Frequency of Treatment Frequency Of Treatment Twice a Day Treatment Plan Physical Therapy Treatment Plan Bed Mobility Training,Transfer Training,Gait Training, Therapeutic Exercise,Balance Retraining,Post Op Education, Discharge Planning,Hot or Cold Pack,Neuromuscular Re-ed Other Recommendations and Next Treatment bed mobility, transfers Focus Recommendations To Nursing Amount of Assist Needed 2 Person Assist Discharge Recommendations PT Discharge Recommendations SNF Rehab Transportation Needs at Discharge Wheelchair/Cabulance
--- NOTE | 2019-12-21 14:41 | CM.DANOTE ---
Addendum entered by VIRAL Amezquita 12/21/19 15:15: ADD: Call back from both [facility] and [facility] and both can accept pt when stable as long as no behaviors or sitters needed. Spouse was not bedside as he had planned to go home to rest and therefore did not have a chance to update him on SNF acceptance. BF Original Note: Patient is an 84 year old female who was admitted on 12/20/19 for GLF. Pt has [facility] and [employer] for insurance and her PCPis Dr. Consuelo Buck. EMR was reviewed. Per MD, pt with likely hip fx and has dementia and ortho to consult. Per Ortho MD, pt with femoral neck fx and recommendation of surgery and spouse in agreement and pt went to surgery last night. Per RN, pt has been calm and cooperative but only oriented to self but no behaviors. Per PT, pt resides at home with spouse who is her primary caregiver and pt independent at baseline with ambulation but needs assist for ADL's which spouse successfully provides. They have an adult Dtr in [place] who is a Chiropractor. PT recommending SNF prior to safe return home with spouse. SW met bedside with pt and spouse and explained role and pt unable to fully participate in discussion but spouse confirms that they live at home in [place] but closer to [facility]. No other services currently in place but pt has hx of CVA in 2017 and went to [facility] and successfully completed Acute Inpt Rehab at [place] and then discharged home with HH at that time. Pt also with a hx of SNF at [facility] ([facility]) a year or more ago. Pt has been doing well until fall yesterday. Spouse states he feels confident in assisting pt at home prior to fall but had begun looking into private pay bilingual speech therapist and someone to help with bathing pt safely as pt preference is the deep bathtub although they have a walk in small shower. SW and spouse spoke at length about support in the home and chcf planning and also home assessment from likely HH or private OT contractor to determine recommendations for DME/safety in the home for pt closer to return to home. Spouse in agreement that SNF likely needed at d/c and SW provided the SNF Choice List and pt states [facility] is his preference as it's actually closer than [place] and pt had a prior good experience there for rehab. SW also encouraged backup SNF and preference is [facility]. SW called [facility] and made new referral and faxed clinicals and then called [facility] with new referral and both will review knowing pt likely not ready until at least Wed for d/c. PASRR completed in anticipation of SNF. Plan: SW to follow for 1)[facility] and 2) [facility] review of pt to determine if either can accept at d/c prior to safe return home with supportive and capable spouse. VIRAL Amezquita Discharge Planning/Care Management CM Discharge Assessment Start: 12/21/19 14:38 Freq: Status: Active Protocol: Document 12/21/19 14:38 BF (Rec: 12/21/19 14:41 BF [id number]) Discharge Planning Assessment Assigned Registered Nurse Renal VIRAL Worrell DPOA/Assigned Designee Name spouse Rui Contact Information [phone] Advance Directives? No Advance Directives on File Yes History Provided By Family Member,Significant Other,Medical Record Has Patient been admitted in last 30 No days? Prior Living Arrangements House Household Members spouse Type of transporation used prior to Relies on Others admit Independent with ADL's No: spouse assists Is patient alert and oriented? No: significant dementia Needs Assistance With Bathing,Meal Prep,Managing Medications,Home Chores / Shopping Caregiver for Another No DME Already Rented / Owned Bath Bench,FWW / Walker Patient/Family Preference Correction Facility Barriers to Discharge No Discharge Plan Correction Facility Transportation Arrangement SNF facility van Referrals Initiated Correction If patient plan is SNF: Has PASSR been Yes completed? Medicare Choice List Provided Yes SN[facility]/HH [facility] Has Agency SNF been contacted Yes Whiteboard Updated in Patient Room with Yes name and ext. # of Registered Nurse Renal Review Status In Process Please Provide Date Initial DC 12/21/19 Assessment Was Performed Next Review Type Continued Stay Review
--- NOTE | 2019-12-21 14:44 | PC.NURSE ---
Patient is able to only laugh when asked questions, patient is able to eat independently. Patient does not seem to be in pain or distress per facial expressions. Patient VSS, lung sounds Dim. Aquacell dressing CDI. Patient had LR at 75ml this AM that was dc'd per post op protocol. Patient only has 75cc urine out in [place] today on this shift. Dr. Robbins's office was telephoned at 1445 about urine output. Waiting for call back.
--- NOTE | 2019-12-21 15:03 | PT.IPTN ---
Current Diagnoses Unspecified intracapsular fracture of right femur, initial encounter for closed fracture (12/20/19) Surgery Performed Operation Date: 12/20/19 17:30 Actual Procedures p Hip Hemiarthroplasty(Right) - Kash Leo MD Physical Therapy Treatment Note M2 PT-IP Current Condition Start: 12/21/19 08:38 Freq: NEEDED Status: Active Protocol: Document 12/21/19 12:04 AW (Rec: 12/21/19 12:31 AW [id number]) Physical Therapy Current Condition Current Condition Evaluation Date 12/21/19 Treatment Diagnosis R femoral neck fracture s/p hemiarthoplasty; difficulty in walking Onset Date 12/19/19 Precautions Posterior Hip Precautions No Hip Flexion > 90 degrees,No Hip Internal Rotation,No Hip Adduction Other Precautions foam abduction pillow on at rest at all times Weight Bearing Status Weight Bearing Status Weight Bear as Tolerated Allowed Weight Bearing Amount (enter % WBAT with posterior or #) (%) precautions. Current activity order is ambulate as tolerated. M3 PT-IP Subjective Start: 12/21/19 08:38 Freq: NEEDED Status: Active Protocol: Document 12/21/19 14:31 CLB (Rec: 12/21/19 16:46 CLB [id number]) Subjective Physical Therapy Visit Type Type Treatment Note Visit Start Time 14:31 Visit Stop Time 15:03 Total Visit Minutes 32 Notes present during tx. Co- treated with DOUGIE Clifford. Number of DATA MIGRATION LEAD Visits 1 Physical Therapy Visit Comments Patient Comments Pt laughs in response to all questions. Patient Goals Pt's spouse believes her care needs will exceed his capacity and that she will likely need SNF rehab. Therapy Pain Assessment Pain When Pain Assessed During Mobility M4 PT-IP Mobility and Gait Start: 12/21/19 08:38 Freq: NEEDED Status: Active Protocol: Document 12/21/19 14:31 CLB (Rec: 12/21/19 16:46 CLB [id number]) PT-Bed Mobility Assessment Sit to Supine Sit to Supine Maximum Assistance Scooting Scooting Up and Down in Bed Dependent PT-Transfer Assessment Sit to and From Stand Sit to and from Stand Maximum Assistance,2 Person Assistance Equipment Transfer Assistive Device Gait Belt,Front Wheeled Walker Orthotic/Prosthetic Devices or Brace: No Transfers Transfer Destination Bed,Chair Transfer Technique Stand Step Pivot Transfer Ability Level of Assist Maximum Assistance,2 Person Assistance Comments Mobility Comments Pt stood requiring Max A x2 and one person in front of pt assisting with Min A on GB. Pt ambulated Mod A x2 ~6ft with verbal cues for step sequencing. Pt fatigued and required Max A x2 for putting leg forward and tactile cues to bring hands back to arms of chair for safe descent. Pt stood again Max A x2-3 and required Max A x2-3 for stand step pivot, third person assisting with advancing for back towards bed. Pt then required Min A x2 to sit on EOB and Max A x2 for sit- supine and scooting towards HOB. Pt left in room with all needs within reach, SCD'd and wedge pillow in place, call light within reach. present. Gait Assessment Gait Gait Assistance Required: Moderate Assistance,2 Person Assist Distance (Feet) 6 Able to Maintain Weight Bearing Status Yes During Gait Assistive Devices Assistive Device Gait Belt,Front Wheeled Walker Orthotic/Prosthetic Devices or Brace: No Gait Deviations General Gait Pattern Antalgic,Decreased Stride Length,Decreased Feet Clearance,Flexed Trunk,Step-to Gait Factors Limiting Gait Function Factors Limiting Gait Function Decreased Activity Tolerance, Decreased Strength,Difficulty Following Directions,Limited Range of Motion,Pain,Poor Balance,Poor Safety Awareness Comments Gait Comments see mobility comments Stair Climbing Assessment Comments Stair Climbing Comments Not assessed. No need to access stairs at home. M5 PT-IP Objective Assessments Start: 12/21/19 08:38 Freq: NEEDED Status: Active Protocol: Document 12/21/19 12:04 AW (Rec: 12/21/19 12:31 AW [id number]) Orientation Orientation/Cognition Level of Alertness Confusional State Orientation Name Safety Awareness Decreased Safety Awareness Memory Description Short Term Impaired,Fpc Impaired Comments Pt has dementia and is essentially non-verbal though she does laugh and is occasionally able to follow simple commands. Gross Range of Motion Lower Extremity ROM Assessment Right Impaired Strength Lower Extremity Strength Assessment Right Impaired Sensation Assessment Comments Sensation Comments Unable to assess due to cognition M6 PT-IP Treatment Start: 12/21/19 08:38 Freq: NEEDED Status: Active Protocol: Document 12/21/19 14:31 CLB (Rec: 12/21/19 16:46 CLB [id number]) Physical Therapy Treatment Exercises Exercises Heel Slides,Supine Hip Abduction M7 PT-IP Assessment and Plan Start: 12/21/19 08:38 Freq: NEEDED Status: Active Protocol: Document 12/21/19 14:31 CLB (Rec: 12/21/19 16:46 CLB [id number]) PT Summary Assessment and Plan Potential Rehabilitation Potential Fair Status of Condition at Evaluation Stable Summary Impairments Pain,ROM,Strength,Balance, Cognition,Bed Mobility, Transfers,Gait,Activity Tolerance Assessment Summary Pt requiring Mod-Max A x2-3 persons for sit-stand, gait and bed mobility. Pt has difficulty standing due to guarding and pain. Once pt is in standing pt was able to ambulate w/o expressing pain and required Mod A x2. Pt cannot follow directions and requires Max verbal and tactile cues for sequencing sit-stand, transfers. Pt will require SNF rehab to increase strength for functional mobility. Goals Bed Mobility Goal Contact Guard Assistance Transfer Goal Contact Guard Assistance,Front Wheeled Walker Gait Goal Contact Guard Assistance,Front Wheel Walker Gait Distance 75 Days to Meet Goals 10 Frequency of Treatment Frequency Of Treatment Twice a Day Treatment Plan Physical Therapy Treatment Plan Bed Mobility Training,Transfer Training,Gait Training, Therapeutic Exercise,Balance Retraining,Post Op Education, Discharge Planning,Hot or Cold Pack,Neuromuscular Re-ed Other Recommendations and Next Treatment bed mobility, transfers, gait Focus as able Recommendations To Nursing Amount of Assist Needed 2 Person Assist Discharge Recommendations PT Discharge Recommendations SNF Rehab Transportation Needs at Discharge Wheelchair/Cabulance
--- NOTE | 2019-12-21 15:04 | OT.IP.EVAL ---
Current Diagnoses Unspecified intracapsular fracture of right femur, initial encounter for closed fracture (12/20/19) Surgery Performed Operation Date: 12/20/19 17:30 Actual Procedures p Hip Hemiarthroplasty(Right) - Kash Leo MD Past Medical History (Last Reviewed 12/21/19 @ 08:35 by Ines Robbins MD) Cholelithiasis (Inactive) Dementia (Inactive) Depression (Inactive) Hyperlipemia (Inactive) Hypertension (Inactive) Hypothyroid (Inactive) Pancreatitis (Inactive) Occupational Therapy Inpatient Evaluation/Re-Eval M1 PT/OT-IP Prior Functional Status Start: 12/21/19 15:29 Freq: NEEDED Status: Active Protocol: Document 12/21/19 15:04 [facility] (Rec: 12/21/19 16:03 [facility] [id number]) Medical Review Prior Functional Status Medical History Reviewed Yes Communication Pt has dementia, responds appropriately on occasion, but typically only laughs in response to questions. Pt's spouse was in room for this encounter and provided all relevant history. Mobility and Gait Pt is typically independent without assistive device. She is accustomed to climbing stairs in her home. Activities of Daily Living and IADL's Pt requires assist with all I/ ADL's. Her , Rui, provides all assist. She has both a large jetted bathtub and a walk in shower on the main level. She prefers the tub. Pt's states she can eat on her own after set- up , cues for grooming at times and otherwise needing assist for all other ADl needs. Prior Functional Level (Other details) Pt had a CVA in ~2017. She was admitted to [facility] and then had a rehab stay at [facility]. She had home health services when she discharged from rehab. Social History Household Members spouse Living Arrangements House Number of Floors (Floors) Two Floors Number of Stairs To Enter/Railing? House is built into a hill. Pt has level entry to the home on the main/upper level where her bedroom, bathroom, kitchen , laundry are located. A family room, office, and craft room are downstairs but pt will not need to access the lower level. Home Environment Standard Height Toilet,Walk in Shower,Tub/Shower,Built-In Shower Seat Home Equipment Straight Cane,Manual Wheelchair,Raised Toilet Seat w/Armrests,Bed Rails,Grab Bars In Shower Additional Social History Comment Pt lives on [address] with her spouse, Rui, who provides all assist. Her bed is tall and she has a homemade /PVC bed rail which she uses to climb into bed with right knee on the bed first and then pulling up. The couple have a daughter who is a chiropractor living and practicing in [place]. M2 OT-IP Current Condition Start: 12/21/19 15:29 Freq: Status: Active Protocol: Document 12/21/19 15:04 [facility] (Rec: 12/21/19 16:03 [facility] [id number]) Occupational Therapy Current Condition Current Condition Evaluation Date 12/21/19 Treatment Diagnosis Right Intra-capsular femoral neck fracture, decreased mobility Diagnosis Onset Date 12/20/19 Post Operative Precautions Posterior Hip Precautions No Hip Flexion > 90 degrees,No Hip Internal Rotation,No Hip Adduction Other Precautions Abducter wedge in place when in bed. Weight Bearing Status Weight Bearing Status Weight Bear as Tolerated Allowed Weight Bearing Amount (enter % Per Dr. Leo order is WBAT or #) (%) and requesting pt to ambulate three times at day. M3 OT- IP Subjective and Pain Start: 12/21/19 15:29 Freq: Status: Active Protocol: Document 12/21/19 15:04 [facility] (Rec: 12/21/19 16:03 [facility] [id number]) OT- Subjective Occupational Therapy Visit Type Type Initial Evaluation Visit Start Time 14:31 Visit Stop Time 15:04 Total Visit Minutes 33 Occupational Therapy Visit Comments Patient Comments Pt's in the room. HEBREW PROFESSOR and HEBREW PROFESSOR student also present due to pt needing extensive assist for mobility needs. Patient/Caregiver Goals Pt's would like his to go to skilled rehab as feels not able to provide enough care for her at this time. OT Pain Assessment Pain When Pain Assessed During Mobility Pain Present Pain Present Unable to Respond FLACC Pain Scale Face Occasional grimace/frown M4 OT- IP ADL's Start: 12/21/19 15:29 Freq: Status: Active Protocol: Document 12/21/19 15:04 [facility] (Rec: 12/21/19 16:03 [facility] [id number]) OT [id number] Comments OT Self-Feeding Comments Not at meal time. Nursing aid states pt mainly eating with her fingers. OT ADL-Grooming Comments OT Grooming Comments Not performed, nursing aid states assisted pt earlier for grooming needs. OT ADL-Oral Care Comments Oral Care Comments Not performed. OT ADL-Dressing General Eval Lower Body Dressing Ability Total Assistance Areas Needing Assistance Socks OT ADL-Toileting Comments OT Toileting Comments NOt performed. Pt's states has her toilet every twp hours and wear and disposable brief and pad. OT ADL-Bathing Comments OT Bathing Comments No at this time. M5 OT- IP IADL's Start: 12/21/19 15:29 Freq: Status: Active Protocol: Document 12/21/19 15:04 [facility] (Rec: 12/21/19 16:03 [facility] [id number]) OT-Instrumental Activities of Daily Living Deficits IADL Deficits Identified Deficits Home Safety Awareness Awareness of Need for Assistance at Home Decreased Awareness Ability to Problem Solve Emergency Unable to Problem Solve Situations Home Safety Comments Pt has severe dementia and mainly laughs and smiles, but at one time did say she was not ready to stand. Medication Management Medication Management Caregiver Administers Money Management Money Management Caregiver Provides Assistance Meal Preparation Meal Preparation Caregiver Provides Assist General Cargo Clerk General Cargo Clerk Caregiver Provides Assist M6 OT- IP Functional Cognition Start: 12/21/19 15:29 Freq: Status: Active Protocol: Document 12/21/19 15:04 [facility] (Rec: 12/21/19 16:03 [facility] [id number]) Cognitive Factors Limiting Selfcare Function Cognitive Ability Level of Alertness Confusional State Patient Orientation Name Ability to Follow Commands Able to Follow One Step Commands with Increased Time, Able to Follow One Step Commands with Repetition Memory Description Short Term Impaired,Care Home Impaired,Working Impaired Safety Awareness Underestimates Need for Assistance Problem Solving Ability Unable to Identify Errors, Needs Assist to Identify Solutions Cognitive Comments Cognitive Assessment Comments Pt highly distracted, at times needing visual and tactile cue for mobility needs. Pt able to follow simple concrete commands in addition to tactile cues to help move her legs, at times needing physical assist to advance her legs. OT- Vision and Hearing OT- Vision Assessment Visual Acuity Glasses All The Time M7 OT- IP Mobility and Balance Start: 12/21/19 15:29 Freq: Status: Active Protocol: Document 12/21/19 15:04 [facility] (Rec: 12/21/19 16:03 [facility] [id number]) OT- Bed Mobility Assessment Sit to Supine Sit to Supine Assist Maximum Assistance,2 Person Assistance OT-Transfer Assessment Sit to and From Stand Sit to and from Stand Maximum Assistance,2 Person Assistance Transfers Transfer Ability Maximum Assistance,2 Person Assistance Technique Transfer Destination Bed,Chair Transfer Technique Stand Step Pivot Devices Transfer Assistive Devices Gait Belt,Front Wheeled Walker Comments Mobility Comments MAX A X3 to stand as needing to slide her right foot forwards to be sure pt following hip precautions when coming to stand to FWW. MODA X2 to stand with FWW and MAX AX 3 to transfer with FWW, assist to more the FWW, assist for balance, weight shifting , and to help move her right foot. OT- Balance Assessment Sitting Balance and Reactions Static Sitting Balance Ability Fair Standing Balance and Reactions Static Standing Balance Ability Poor Dynamic Standing Balance Ability Poor M8 OT- IP Objective Assessments Start: 12/21/19 15:29 Freq: Status: Active Protocol: Document 12/21/19 15:04 [facility] (Rec: 12/21/19 16:03 [facility] [id number]) OT Strength Comments Strength Comments At least 3+/5 , not able to formally assess at this time due to her dementia. OT- Coordination Assessment Comments Coordination Comments Arthritic changes in her hands and need assist for set-up for needs. OT-Muscle Tone Assessment Muscle Tone WNL Yes M9 OT- IP Assessment and Plan Start: 12/21/19 15:29 Freq: Status: Active Protocol: Document 12/21/19 15:04 [facility] (Rec: 12/21/19 16:03 [facility] [id number]) OT Summary Assessment and Plan Potential Rehabilitation Potential Good Analytic Complexity at Evaluation Low Summary OT Impairments Pain,Balance,Functional Cognition,Functional Mobility, Self-Feeding,Grooming,Dressing ,Toileting,Toilet Transfers, Shower Transfers,Activity Tolerance Progress Towards Goals Slow Progress due to Pain,Slow Progress due to Activity Tolerance,Slow Progress due to Cognition Assessment Summary Pt low complexity and main barriers are now needing 2-3 person assist for all mobility needs. Prior to her GLF and right hip fracture able to get around the house without a device. Pt's current mobility level would be too much burden for her to assist and would benefit from skilled rehab prior to going home. Goals Self-Feeding Goal Standby Assistance Grooming Goal Standby Assistance Dressing Goal Moderate Assistance Toileting Goal Moderate Assistance Bathing Goal Moderate Assistance Toilet Transfer Goal Independent Shower Transfer Goal Standby Assistance Patient/Caregiver Education Goal Demonstrate Post-Op Precautions,Caregiver Independent Assisting Patient Days to Meet Goals 25 Frequency of Treatment Frequency Of Treatment Once a Day Treatment Plan OT Treatment Plan ADL Training,Functional Cognition Training,Functional Mobility,Patient/Family Education,Discharge Planning Other Treatment Recommendations and Next [place] [facility] [place] MODA X 2 Treatment Focus and FWW. Discharge Recommendations OT Discharge Recommendations SNF Rehab Home Equipment Needs Defer to skilled rehab Transportation Needs at Discharge Wheelchair/Cabulance
[2019-12-21] MEDS: SODIUM CHLORIDE 0.45% 1,000 ML 75 ML IV (18:36)
[2019-12-22] VITALS (13 sets, daily range): BP systolic 121–139; BP diastolic 57–78; PULSE 66–100; RESP 12–20; TEMP 36.3–37.1; O2SAT 89–98
[2019-12-22 03:55] LABS: Alanine Aminotransferase 10 IU/L (<35); Albumin 2.6 g/dL (3.5-5.0); Alkaline Phosphatase 59 U/L (38-126); Aspartate Aminotransferase 54 IU/L (14-36); BUN Creatinine Ratio 27.5 (6-22); Bilirubin Total 0.4 mg/dL (0.2-1.3); Blood Urea Nitrogen 33 mg/dL (7-17); Calcium 8.6 mg/dL (8.4-10.2); Carbon Dioxide 27 mmol/L (22-32); Chloride 109 mmol/L (98-107); Estimated Glomerular Filt Rate 42.8 mL/min (>60); Globulin 2.6 g/dL (1.7-4.1); Glucose 98 mg/dL (80-110); HEMOLYSIS 30 (0-50); Potassium 3.4 mmol/L (3.4-5.1); Sodium 136 mmol/L (137-145); Total Protein 5.2 g/dL (6.3-8.2)
[2019-12-22 04:04] LABS: NT-proBNP (BNP-Adult 18+) 2150 pg/mL (<450)
[2019-12-22] MEDS: LEVOTHYROXINE 50 MCG TABLET PO (05:07)
[2019-12-22] MEDS: gemfibroziL 600 MG TABLET PO ×2 (06:26→17:26)
--- NOTE | 2019-12-22 07:42 | PM.PNPO.1 ---
Subjective Subjective Date Patient Seen: 12/22/19 Time Patient Seen: 07:42 Interval history: POD #2 right hip hemiarthroplasty with Dr. Leo. Patient is pleasant, and has dementia.Unable to answer questions clearly. Exam Vital Signs (past 8 hours): - 12/22/19 00:45 12/22/19 05:10 Temperature 98.7 F 98.3 F Pulse Rate 85 66 Respiratory Rate 16 18 Blood Pressure 121/57 L 139/67 Pulse Oximetry 92 95 Oxygen Delivery Method Nasal Cannula Oxygen Flow Rate 3 Narrative Exam Narrative: Patient lying in bed in NAD. She is using her abduction pillow. SCDs on and functioning. DP 2+ and symmetrical. Borges in place. Dressing on right hip is CDI. Objective Labs Result Diagrams: 12/21/19 05:25 12/22/19 03:40 Labs: Laboratory Results - last 24 hr 12/22/19 03:40 Sodium 136 L Potassium 3.4 Chloride 109 H Carbon Dioxide 27 BUN 33 H Creatinine 1.20 H Estimated GFR 42.8 L BUN/Creatinine Ratio 27.5 H Glucose 98 Calcium 8.6 Total Bilirubin 0.4 AST 54 H ALT 10 Alkaline Phosphatase 59 NT-Pro-B Natriuret Pep 2150 H Total Protein 5.2 L Albumin 2.6 L Globulin 2.6 Albumin/Globulin Ratio 1.0 Assessment & Plan Post-op Postoperative Procedures: Procedures Operation Date: 12/20/19 17:30 Actual Procedures Side Surgeon p Hip Hemiarthroplasty Right Kash Leo MD Postop day 2 status post right hip hemiarthroplasty. Weightbearing as tolerated right lower extremity. Posterior hip precautions, 24 hours postop antibiotics, aspirin 81 mg b.i.d. for 6 weeks. Patient has history of hypothyroidism, hypertension, hyperlipidemia, dementia being followed by Medicine. Patient will mobilize with physical therapy and likely need fpc facility placement. Quality VTE Deep Vein Thrombosis/Pulmonary Embolism Present on Admission: No
[2019-12-22] MEDS: SODIUM CHLORIDE 0.45% 1,000 ML 75 ML IV ×2 (08:36→21:58)
[2019-12-22] MEDS: polyethylene glycoL 3350 17 GM POWD.PACK PO (09:01)
[2019-12-22] MEDS: ASPIRIN EC 81 MG TABLET PO ×2 (09:01→21:20)
[2019-12-22] MEDS: AMLODIPINE 5 MG TABLET PO (09:02)
[2019-12-22] MEDS: ACETAMINOPHEN 325 MG TABLET 650 MG PO ×3 (09:02→21:20)
--- NOTE | 2019-12-22 09:41 | P.PN_ITS ---
Subjective Subjective Date Patient Seen: 12/22/19 Time Patient Seen: 09:41 Interval history: Patient is demented, difficult to obtain subjective input. She is smiling and cooperative with exam. is at bedside, reports that she is participating in physical therapy and understands that she will be transferred to SNF upon discharge. Exam Vital Signs (past 8 hours): - 12/22/19 05:10 12/22/19 07:30 12/22/19 07:35 Temperature 98.3 F Pulse Rate 66 Respiratory Rate 18 Blood Pressure 139/67 Pulse Oximetry 95 98 96 12/22/19 08:42 12/22/19 09:14 12/22/19 09:17 Temperature Pulse Rate Respiratory Rate Blood Pressure Pulse Oximetry 95 90 L 92 Oxygen Delivery Method Nasal Cannula Oxygen Flow Rate 1 Narrative Exam Narrative: GENERAL: Alert and disoriented, appearing stated age and in no acute distress. HEENT: Head normocephalic/atraumatic. Pupils equal, round, and reactive to light and accomodation. Extraocular muscles intact. Tympanic membranes clear. Nasal mucosa moist, septum midline. Oral mucosa moist, no lesions. Neck soft and supple, no lymphadenopathy. LUNGS: Clear to ausculation bilaterally, no wheezes, rhonchi or rales. CV: Normal S1 and S2 with regular rate and rhythm, no audible murmurs, rubs or gallops. ABDOMEN: Soft, non-tender, non-distended, no organomegaly. Positive bowel sounds. EXTREMITIES: Dressing right hip, clean, dry, intact. NEURO: Cranial nerves II through XII grossly intact, no focal deficits. PSYCH: Alert and oriented x 3. SKIN: No concerning lesions. Incision clean, dry, intact. Objective Labs Result Diagrams: 12/21/19 05:25 12/22/19 03:40 Labs: Laboratory Results - last 24 hr 12/22/19 03:40 Sodium 136 L Potassium 3.4 Chloride 109 H Carbon Dioxide 27 BUN 33 H Creatinine 1.20 H Estimated GFR 42.8 L BUN/Creatinine Ratio 27.5 H Glucose 98 Calcium 8.6 Total Bilirubin 0.4 AST 54 H ALT 10 Alkaline Phosphatase 59 NT-Pro-B Natriuret Pep 2150 H Total Protein 5.2 L Albumin 2.6 L Globulin 2.6 Albumin/Globulin Ratio 1.0 Assessment & Plan Assessment & Plan narrative: 84-year-old female with a history of hypertension, hypothyroidism and hyperlipidemia with a ground level fall and sustained a hip fracture, POD #2. 1. Right hip fracture, status post ORIF Plan: Continue per surgery. Pain well-controlled. PT. Plan is for transfer to SNF upon discharge. 2. Acute Kidney Injury, likely secondary to medications and possibly dehydra tion Plan: Patient was gently hydrated overnight with IFT at 75 cc/hour. BNP up this morning, positive fluid balance. Will turn off IVF, watch output, and trend labs in am. 3. Acute Protein Malnutrition Plan: Nutrition consult. 4. Hypothyroidism, chronic, controlled Plan: Will continue with levothyroxine. 5. Hypertension, chronic, controlled Plan: Will continue outpatient medications. 6. Hyperlipidemia, chronic, controlled Plan: Contginue gemfibrozil. 7. Dementia, Alzheimer's. Plan: Will start donepazil 5 mg PO qd. Code status: DNR COVID-19: negative. Quality VTE Deep Vein Thrombosis/Pulmonary Embolism Present on Admission: No
--- NOTE | 2019-12-22 09:44 | RT ---
Patient is unable to give a present history due to dementia .
--- NOTE | 2019-12-22 12:50 | PT.IPTN ---
Current Diagnoses Unspecified intracapsular fracture of right femur, initial encounter for closed fracture (12/20/19) Surgery Performed Operation Date: 12/20/19 17:30 Actual Procedures p Hip Hemiarthroplasty(Right) - Kash Leo MD Physical Therapy Treatment Note M2 PT-IP Current Condition Start: 12/21/19 08:38 Freq: NEEDED Status: Active Protocol: Document 12/21/19 12:04 AW (Rec: 12/21/19 12:31 AW [id number]) Physical Therapy Current Condition Current Condition Evaluation Date 12/21/19 Treatment Diagnosis R femoral neck fracture s/p hemiarthoplasty; difficulty in walking Onset Date 12/19/19 Precautions Posterior Hip Precautions No Hip Flexion > 90 degrees,No Hip Internal Rotation,No Hip Adduction Other Precautions foam abduction pillow on at rest at all times Weight Bearing Status Weight Bearing Status Weight Bear as Tolerated Allowed Weight Bearing Amount (enter % WBAT with posterior or #) (%) precautions. Current activity order is ambulate as tolerated. M3 PT-IP Subjective Start: 12/21/19 08:38 Freq: NEEDED Status: Active Protocol: Document 12/22/19 12:13 CLB (Rec: 12/22/19 13:11 CLB [id number]) Subjective Physical Therapy Visit Type Type Treatment Note Visit Start Time 12:13 Visit Stop Time 12:50 Total Visit Minutes 37 Number of CABLE ARMORER Visits 2 Physical Therapy Visit Comments Patient Comments Pt able to communicate verbally to simple questions. Patient Goals Pt's spouse believes her care needs will exceed his capacity and that she will likely need SNF rehab. Therapy Pain Assessment Pain When Pain Assessed During Mobility M4 PT-IP Mobility and Gait Start: 12/21/19 08:38 Freq: NEEDED Status: Active Protocol: Document 12/22/19 12:13 CLB (Rec: 12/22/19 13:11 CLB [id number]) PT-Bed Mobility Assessment Supine to Sit Supine to Sit Maximum Assistance,2 Person Assistance,Head of Bed Elevated Scooting Scooting to Edge of Bed Maximum Assistance Scooting Up and Down in Bed Dependent PT-Transfer Assessment Sit to and From Stand Sit to and from Stand Maximum Assistance,2 Person Assistance Equipment Transfer Assistive Device Gait Belt,Front Wheeled Walker Orthotic/Prosthetic Devices or Brace: No Transfers Transfer Destination Chair Transfer Technique chair rehan up behind pt after attepting to ambualte Transfer Ability Level of Assist Maximum Assistance,2 Person Assistance Comments Mobility Comments Pt in bed and performed HS and supine hip abd requiring AAROM, pt is requiring 2 person Max A for supine-sit then sit to stand. Pt attempted to ambulate but was unable to initiate step to advance RLE even with verbal and tactile cues. Pt was able to stand for several minutes bearing weight through both LE 's. Pt then flexed knee and was only bearing wt on LLE. Chair was then brought around behind pt and tactile cues were used to guide pts right hand to arm of chair and pt sat in chair. Pt was left in chair with wedge pillow on, O2 monitor on left foot middle toe. Pt remained on 1L O2 thoughout tx per RN request and Sp02 after tx was 99% on 1L, HR 90. at end of tx doctor entered room. Left pt in room with MD and . Gait Assessment Comments Gait Comments unable this session Stair Climbing Assessment Comments Stair Climbing Comments Not assessed. No need to access stairs at home. M5 PT-IP Objective Assessments Start: 12/21/19 08:38 Freq: NEEDED Status: Active Protocol: Document 12/21/19 12:04 AW (Rec: 12/21/19 12:31 AW [id number]) Orientation Orientation/Cognition Level of Alertness Confusional State Orientation Name Safety Awareness Decreased Safety Awareness Memory Description Short Term Impaired,Assisted Impaired Comments Pt has dementia and is essentially non-verbal though she does laugh and is occasionally able to follow simple commands. Gross Range of Motion Lower Extremity ROM Assessment Right Impaired Strength Lower Extremity Strength Assessment Right Impaired Sensation Assessment Comments Sensation Comments Unable to assess due to cognition M6 PT-IP Treatment Start: 12/21/19 08:38 Freq: NEEDED Status: Active Protocol: Document 12/22/19 12:13 CLB (Rec: 12/22/19 13:11 CLB [id number]) Physical Therapy Treatment Exercises Exercises Heel Slides,Supine Hip Abduction M7 PT-IP Assessment and Plan Start: 12/21/19 08:38 Freq: NEEDED Status: Active Protocol: Document 12/22/19 12:13 CLB (Rec: 12/22/19 13:11 CLB [id number]) PT Summary Assessment and Plan Potential Rehabilitation Potential Fair Status of Condition at Evaluation Stable Summary Impairments Pain,ROM,Strength,Balance, Cognition,Bed Mobility, Transfers,Gait,Activity Tolerance Assessment Summary Pt requires Max x2 for all mobility and was unable to advance right or left LE stating ouch and when asked if she could walk she stated I don't know. Pt will require SNF rehab for strength and functional mobility. Goals Bed Mobility Goal Contact Guard Assistance Transfer Goal Contact Guard Assistance,Front Wheeled Walker Gait Goal Contact Guard Assistance,Front Wheel Walker Gait Distance 75 Days to Meet Goals 10 Frequency of Treatment Frequency Of Treatment Twice a Day Treatment Plan Physical Therapy Treatment Plan Bed Mobility Training,Transfer Training,Gait Training, Therapeutic Exercise,Balance Retraining,Post Op Education, Discharge Planning,Hot or Cold Pack,Neuromuscular Re-ed Other Recommendations and Next Treatment bed mobility, transfers, gait Focus as able Recommendations To Nursing Amount of Assist Needed 2 Person Assist Discharge Recommendations PT Discharge Recommendations SNF Rehab Transportation Needs at Discharge Wheelchair/Cabulance
--- NOTE | 2019-12-22 13:18 | PT.IPTN ---
Current Diagnoses Unspecified intracapsular fracture of right femur, initial encounter for closed fracture (12/20/19) Surgery Performed Operation Date: 12/20/19 17:30 Actual Procedures p Hip Hemiarthroplasty(Right) - Kash Leo MD Physical Therapy Treatment Note M2 PT-IP Current Condition Start: 12/21/19 08:38 Freq: NEEDED Status: Active Protocol: Document 12/21/19 12:04 AW (Rec: 12/21/19 12:31 AW [id number]) Physical Therapy Current Condition Current Condition Evaluation Date 12/21/19 Treatment Diagnosis R femoral neck fracture s/p hemiarthoplasty; difficulty in walking Onset Date 12/19/19 Precautions Posterior Hip Precautions No Hip Flexion > 90 degrees,No Hip Internal Rotation,No Hip Adduction Other Precautions foam abduction pillow on at rest at all times Weight Bearing Status Weight Bearing Status Weight Bear as Tolerated Allowed Weight Bearing Amount (enter % WBAT with posterior or #) (%) precautions. Current activity order is ambulate as tolerated. M3 PT-IP Subjective Start: 12/21/19 08:38 Freq: NEEDED Status: Active Protocol: Document 12/22/19 14:01 AB (Rec: 12/22/19 15:00 AB [id number]) Subjective Physical Therapy Visit Type Type Treatment Note Visit Start Time 14:01 Visit Stop Time 14:39 Total Visit Minutes 38 Number of MATRIX REPAIRER Visits 0 Therapy Pain Assessment Pain When Pain Assessed During Mobility Location Right Hip Scale Used pain scale not stated but winces with RLE movement and increase guarding Pain Behaviors Guarding,[place] Pain Management Techniques Distraction,Modification of Treatment,Re-positioning, Timing of Activity with Medications M4 PT-IP Mobility and Gait Start: 12/21/19 08:38 Freq: NEEDED Status: Active Protocol: Document 12/22/19 14:01 AB (Rec: 12/22/19 15:00 AB [id number]) PT-Bed Mobility Assessment Sit to Supine Sit to Supine Total Assistance,2 Person Assistance PT-Transfer Assessment Sit to and From Stand Sit to and from Stand Maximum Assistance,2 Person Assistance,Use of Upper Extremities Equipment Transfer Assistive Device Gait Belt Orthotic/Prosthetic Devices or Brace: No Transfers Transfer Destination Bed Transfer Technique Stand Pivot Transfer Ability Level of Assist Maximum Assistance,2 Person Assistance,Use of Upper Extremities Comments Mobility Comments pt sitting on chair. pt has decrease cognition and unable to verbalize if she is feeling fine or in pain and yvette just laugh with questions but occasionally will be able to answer general questions. pt completed sit to stand from chair max A x 2 and max cues. required max A to maintain hip precautions as pt is unable to follow and recall precautions. required 3 attempts for sit to stand. pt has increase posterior pushing/resistance and guarding during sit to stand. once standing, pt was able to stand with min A x2 using FWW and attempted to ambulate and transfer to bed initially requiring max A 2 but pt unable to complete transfer and was assisted back to chair . completed stand pivot again but with PT in front of pt and another PT behind pt to assist with pivot transfers x 2 attempts max A x 2 and max cues. required total A x 2 for sit to supine and positioning in bed. call light and table placed within reach. M5 PT-IP Objective Assessments Start: 12/21/19 08:38 Freq: NEEDED Status: Active Protocol: Document 12/21/19 12:04 AW (Rec: 12/21/19 12:31 AW [id number]) Orientation Orientation/Cognition Level of Alertness Confusional State Orientation Name Safety Awareness Decreased Safety Awareness Memory Description Short Term Impaired,Assisted Impaired Comments Pt has dementia and is essentially non-verbal though she does laugh and is occasionally able to follow simple commands. Gross Range of Motion Lower Extremity ROM Assessment Right Impaired Strength Lower Extremity Strength Assessment Right Impaired Sensation Assessment Comments Sensation Comments Unable to assess due to cognition M6 PT-IP Treatment Start: 12/21/19 08:38 Freq: NEEDED Status: Active Protocol: Document 12/22/19 14:01 AB (Rec: 12/22/19 15:00 [email or web address]) Physical Therapy Treatment Education Education Provided Precautions,Weight Bearing Status,Safety M7 PT-IP Assessment and Plan Start: 12/21/19 08:38 Freq: NEEDED Status: Active Protocol: Document 12/22/19 14:01 AB (Rec: 12/22/19 15:00 [email or web address]) PT Summary Assessment and Plan Potential Rehabilitation Potential Good Summary Impairments Pain,ROM,Strength,Balance, Coordination,Sensation,Tone, Cognition,Bed Mobility, Transfers,Gait,Activity Tolerance Progress Towards Goals Slow Progress due to Medical Issues,Slow Progress due to Activity Tolerance Assessment Summary pt requiring max A x 2 to total Ax 2 and max cues. pt has decrease cognitive level affecting mobility and will require SNF rehab to improve strength and mobility . Goals Bed Mobility Goal Minimal Assistance Transfer Goal Minimal Assistance,Front Wheeled Walker Gait Goal Minimal Assistance,Front Wheel Walker Gait Distance 25 Days to Meet Goals 10 Frequency of Treatment Frequency Of Treatment Twice a Day Treatment Plan Physical Therapy Treatment Plan Bed Mobility Training,Transfer Training,Gait Training, Therapeutic Exercise,Balance Retraining,Post Op Education, Discharge Planning,Hot or Cold Pack,Neuromuscular Re-ed Other Recommendations and Next Treatment bed mobility, transfers, gait Focus as able Recommendations To Nursing Amount of Assist Needed PT/OT Assist Only Discharge Recommendations PT Discharge Recommendations SNF Rehab Transportation Needs at Discharge Wheelchair/Cabulance
--- NOTE | 2019-12-22 14:57 | PC.NURSE ---
Day Shift- Pt's Rui at bedside. States pt takes her pills whole with water at home. Pt OOB with PT assist only at 1230 and back to bed at 1430. Borges remained in place due to limited mobility. Pt oriented to her first name only intermittently, pleasantly confused, laughs out loud when asking questions. Does constantly pull off O2 NC tubing, O2 sat monitor to right toe, O2 88-90% on RA, O2 weaned to 1L NC, O2 sat 93%. Right hip aquacel dressing CDI, abductor wedge in place. SCD's to bilateral Calf when pt in bed. Bed/Chair alarm on, pt does not use call light, frequent checks done.
--- NOTE | 2019-12-22 15:07 | CM.DPC ---
DCP: continued: Case received and followed up on d/c plan set in motion yesterday. [facility] confirmed they are accepting pt. Pt will have met the 3 day inpt stay that will qualify her for snf rehab tomorrow: 12/22. PASRR: completed 12/20 by ERIK Worrell. Met now in followup with pt and her Rui. Confirmed plan for d/c to [facility] once pt deemed stable for same. Rui said his daughter Lidia Delatorre/ a chiropractor in [place] does have questions re the POC and d/c plan specifics and he is hopeful DCP team can talk with her. Gave him the DCP contact info so that she could call in tomorrow with any questions. Rui says that he expects Dr. Buck/PCP to be in tomorrow morning and will plan to be here then so he can discuss POC further. P: [facility] Care/Rehab when stable for same.
--- NOTE | 2019-12-22 15:17 | OT.IPNOTE ---
Per pt's PT just worked with pt earlier and wanting her to rest at this time. Pt's felt that the pt was having more pain today and not doing as well for mobility needs today. To make sure to coordinate seeing pt when pt has pain medications on board. No charge.
[2019-12-22] MEDS: DONEPEZIL 5 MG TABLET PO (21:20)
[2019-12-22] MEDS: DOCUSATE 100 MG CAPSULE PO (21:20)
[2019-12-23] VITALS (7 sets, daily range): BP systolic 126–135; BP diastolic 69–77; PULSE 71–106; RESP 14–18; TEMP 36.1–36.7; O2SAT 91–98
[2019-12-23 05:58] LABS: Add Manual Diff / Slide Review NO; Basophils Absolute Auto 100 /uL (0-100); Basophils Percent Auto 1.1 % (0-2); Eosinophils Absolute Auto 300 /uL (0-450); Eosinophils Percent Auto 5.1 % (2-4); Hematocrit 32.7 % (36-46); Lymphocytes Absolute Auto 1500 /uL (1100-4500); Lymphocytes Percent Auto 23.4 % (25-40); Mean Corpuscular HGB Conc 33.5 % (30-36); Mean Corpuscular Hemoglobin 27.2 PG (26-34); Mean Corpuscular Volume 81.2 fL (80-100); Monocytes Absolute Auto 500 /uL (0-900); Monocytes Percent Auto 7.6 % (3-14); Neutrophils Absolute Auto 4000 /uL (1500-7000); Neutrophils Percent Auto 62.8 % (50-75); Platelet Count 197 X10^3/uL (150-400); Red Blood Cell Count 4.02 X10^6/uL (4.0-5.2); White Blood Cell Count 6.4 X10^3/uL (4.5-11.0)
[2019-12-23 06:13] LABS: BUN Creatinine Ratio 24.1 (6-22); Blood Urea Nitrogen 20 mg/dL (7-17); Calcium 8.4 mg/dL (8.4-10.2); Carbon Dioxide 24 mmol/L (22-32); Chloride 112 mmol/L (98-107); Estimated Glomerular Filt Rate > 60.0 mL/min (>60); Glucose 88 mg/dL (80-110); HEMOLYSIS < 15 (0-50); Potassium 3.7 mmol/L (3.4-5.1); Sodium 135 mmol/L (137-145)
[2019-12-23 06:19] LABS: NT-proBNP (BNP-Adult 18+) 3560 pg/mL (<450)
[2019-12-23] MEDS: LEVOTHYROXINE 50 MCG TABLET PO (06:24)
[2019-12-23] MEDS: gemfibroziL 600 MG TABLET PO (06:24)
--- NOTE | 2019-12-23 07:30 | PM.PN.1 ---
Subjective Subjective Date Patient Seen: 12/23/19 Time Patient Seen: 07:30 Exam Vital Signs (past 8 hours): - 12/23/19 02:50 12/23/19 03:07 12/23/19 05:30 Temperature 98.0 F 97.7 F Pulse Rate 83 74 Respiratory Rate 16 14 Blood Pressure 127/73 134/73 Pulse Oximetry 98 98 95 Oxygen Delivery Method Nasal Cannula Oxygen Flow Rate 2.5 Objective Labs Result Diagrams: 12/23/19 05:05 12/23/19 05:05 Labs: Laboratory Results - last 24 hr 12/23/19 12/23/19 05:05 05:05 WBC 6.4 RBC 4.02 Hgb 11.0 L Hct 32.7 L MCV 81.2 MCH 27.2 MCHC 33.5 RDW 15.0 H Plt Count 197 Neut % (Auto) 62.8 Lymph % (Auto) 23.4 L [place] % (Auto) 7.6 Eos % (Auto) 5.1 H Baso % (Auto) 1.1 Neut # (Auto) 4000 Lymph # (Auto) 1500 [place] # (Auto) 500 Eos # (Auto) 300 Baso # (Auto) 100 Sodium 135 L Potassium 3.7 Chloride 112 H Carbon Dioxide 24 BUN 20 H Creatinine 0.83 Estimated GFR > 60.0 BUN/Creatinine Ratio 24.1 H Glucose 88 Calcium 8.4 NT-Pro-B Natriuret Pep 3560 H Quality VTE Deep Vein Thrombosis/Pulmonary Embolism Present on Admission: No
[2019-12-23] MEDS: ACETAMINOPHEN 325 MG TABLET 650 MG PO (08:42)
[2019-12-23] MEDS: DOCUSATE 100 MG CAPSULE PO (08:43)
[2019-12-23] MEDS: AMLODIPINE 5 MG TABLET PO (08:43)
[2019-12-23] MEDS: SODIUM CHLORIDE 0.9% FLUSH 10 ML IV (08:43)
[2019-12-23] MEDS: ASPIRIN EC 81 MG TABLET PO (08:43)
--- NOTE | 2019-12-23 09:53 | P.PN_ITS ---
Subjective Subjective Date Patient Seen: 12/23/19 Time Patient Seen: 07:32 Interval history: Patient has severe dementia and does not answer questions. Exam Vital Signs (past 8 hours): - 12/23/19 02:50 12/23/19 03:07 12/23/19 05:30 Temperature 98.0 F 97.7 F Pulse Rate 83 74 Respiratory Rate 16 14 Blood Pressure 127/73 134/73 Pulse Oximetry 98 98 95 12/23/19 07:31 12/23/19 09:11 Temperature 97.9 F Pulse Rate 71 76 Respiratory Rate 14 Blood Pressure 126/69 Pulse Oximetry 97 98 Oxygen Delivery Method Nasal Cannula Oxygen Flow Rate 2.5 Narrative Exam Narrative: 84-year-old female resting comfortably in bed in no apparent distress. Is clean, dry and intact. Lower extremities are warm and dry. Sensation intact to light touch. Objective Labs Result Diagrams: 12/23/19 05:05 12/23/19 05:05 Labs: Laboratory Results - last 24 hr 12/23/19 12/23/19 05:05 05:05 WBC 6.4 RBC 4.02 Hgb 11.0 L Hct 32.7 L MCV 81.2 MCH 27.2 MCHC 33.5 RDW 15.0 H Plt Count 197 Neut % (Auto) 62.8 Lymph % (Auto) 23.4 L [place] % (Auto) 7.6 Eos % (Auto) 5.1 H Baso % (Auto) 1.1 Neut # (Auto) 4000 Lymph # (Auto) 1500 [place] # (Auto) 500 Eos # (Auto) 300 Baso # (Auto) 100 Sodium 135 L Potassium 3.7 Chloride 112 H Carbon Dioxide 24 BUN 20 H Creatinine 0.83 Estimated GFR > 60.0 BUN/Creatinine Ratio 24.1 H Glucose 88 Calcium 8.4 NT-Pro-B Natriuret Pep 3560 H Assessment & Plan Post-op Postoperative Procedures: Procedures Operation Date: 12/20/19 17:30 Actual Procedures Side Surgeon p Hip Hemiarthroplasty Right Kash Leo MD Postop day 3 status post right hip hemiarthroplasty. Weightbearing as tolerate d. Posterior hip precautions. Aspirin 81 mg b.i.d. for 6 weeks. Medicine Team following for acute kidney injury likely secondary to medications and possibly dehydration, acute protein malnutrition, hypothyroidism, hypertension, hyperlipidemia, dementia. Discharge when medically stable. Quality VTE Deep Vein Thrombosis/Pulmonary Embolism Present on Admission: No
--- NOTE | 2019-12-23 10:17 | PT.IPTN ---
Current Diagnoses Unspecified intracapsular fracture of right femur, initial encounter for closed fracture (12/20/19) Surgery Performed Operation Date: 12/20/19 17:30 Actual Procedures p Hip Hemiarthroplasty(Right) - Kash Leo MD Physical Therapy Treatment Note M2 PT-IP Current Condition Start: 12/21/19 08:38 Freq: NEEDED Status: Active Protocol: Document 12/21/19 12:04 AW (Rec: 12/21/19 12:31 AW [id number]) Physical Therapy Current Condition Current Condition Evaluation Date 12/21/19 Treatment Diagnosis R femoral neck fracture s/p hemiarthoplasty; difficulty in walking Onset Date 12/19/19 Precautions Posterior Hip Precautions No Hip Flexion > 90 degrees,No Hip Internal Rotation,No Hip Adduction Other Precautions foam abduction pillow on at rest at all times Weight Bearing Status Weight Bearing Status Weight Bear as Tolerated Allowed Weight Bearing Amount (enter % WBAT with posterior or #) (%) precautions. Current activity order is ambulate as tolerated. M3 PT-IP Subjective Start: 12/21/19 08:38 Freq: NEEDED Status: Active Protocol: Document 12/23/19 10:17 AB (Rec: 12/23/19 13:36 AB [email or web address]) Subjective Physical Therapy Visit Type Type Treatment Note Visit Start Time 10:17 Visit Stop Time 10:58 Total Visit Minutes 41 Number of BEEF SELECTOR Visits 0 Physical Therapy Visit Comments Patient Comments pt continues to have decrease cognition; requires repeated questions and cues to obtain a response M4 PT-IP Mobility and Gait Start: 12/21/19 08:38 Freq: NEEDED Status: Active Protocol: Document 12/23/19 10:17 AB (Rec: 12/23/19 13:36 AB [id number]) PT-Bed Mobility Assessment Supine to Sit Supine to Sit Maximum Assistance,2 Person Assistance,Head of Bed Elevated,Bedrails Scooting Scooting to Edge of Bed Dependent PT-Transfer Assessment Sit to and From Stand Sit to and from Stand Maximum Assistance,Total Assistance,2 Person Assistance ,Use of Upper Extremities Equipment Transfer Assistive Device Gait Belt,Front Wheeled Walker Orthotic/Prosthetic Devices or Brace: No Transfers Transfer Destination Chair Transfer Technique Squat Pivot Transfer Ability Level of Assist Maximum Assistance,2 Person Assistance,Use of Upper Extremities Comments Mobility Comments completed supine to sit max A x2 and max cues. required total A x 2for scooting to EOB . completed sit to stand x5 reps requiring max A x 2 and max cues. pt with difficulty following instructions. was able to maintain standing x 3 reps out of the 5 attempts but was only able to tolerate ~ 10 sec of standing. positioned chair close to pt and completed squat pivot transfer max A x 2 and max cues. positioned pt on chair total A x 2 and max cues. call light and table placed within reach. abductor pillow and chair alarm on. Gait Assessment Comments Gait Comments unable at this time M5 PT-IP Objective Assessments Start: 12/21/19 08:38 Freq: NEEDED Status: Active Protocol: Document 12/21/19 12:04 AW (Rec: 12/21/19 12:31 AW [id number]) Orientation Orientation/Cognition Level of Alertness Confusional State Orientation Name Safety Awareness Decreased Safety Awareness Memory Description Short Term Impaired,Penitentiary Impaired Comments Pt has dementia and is essentially non-verbal though she does laugh and is occasionally able to follow simple commands. Gross Range of Motion Lower Extremity ROM Assessment Right Impaired Strength Lower Extremity Strength Assessment Right Impaired Sensation Assessment Comments Sensation Comments Unable to assess due to cognition M6 PT-IP Treatment Start: 12/21/19 08:38 Freq: NEEDED Status: Active Protocol: Document 12/23/19 10:17 AB (Rec: 12/23/19 13:36 AB [id number]) Physical Therapy Treatment Exercises Exercises Heel Slides Education Education Provided Safety M7 PT-IP Assessment and Plan Start: 12/21/19 08:38 Freq: NEEDED Status: Active Protocol: Document 12/23/19 10:17 AB (Rec: 12/23/19 13:36 AB [email or web address]) PT Summary Assessment and Plan Potential Rehabilitation Potential Fair Summary Impairments Pain,ROM,Strength,Balance, Coordination,Sensation,Tone, Cognition,Bed Mobility, Transfers,Gait,Activity Tolerance Progress Towards Goals Slow Progress due to Pain,Slow Progress due to Medical Issues,Slow Progress - Other Assessment Summary pt requirign max A x 2 to total A x 2 and max cues. pt with decrease cognitive level affecting following directions , carry over and mobility. pt will require SNF rehab to improve functional mobility. Goals Bed Mobility Goal Minimal Assistance Transfer Goal Minimal Assistance,Front Wheeled Walker Gait Goal Minimal Assistance,Front Wheel Walker Gait Distance 25 Days to Meet Goals 10 Frequency of Treatment Frequency Of Treatment Twice a Day Treatment Plan Physical Therapy Treatment Plan Bed Mobility Training,Transfer Training,Gait Training, Therapeutic Exercise,Balance Retraining,Post Op Education, Discharge Planning,Hot or Cold Pack,Neuromuscular Re-ed Other Recommendations and Next Treatment bed mobility, transfers, gait Focus as able Recommendations To Nursing Amount of Assist Needed PT/OT Assist Only Discharge Recommendations PT Discharge Recommendations SNF Rehab Transportation Needs at Discharge Wheelchair/Cabulance
[2019-12-23] MEDS: SODIUM CHLORIDE 0.45% 1,000 ML 75 ML IV (11:07)
--- NOTE | 2019-12-23 13:08 | P.DS_ITS ---
History of Present Illness History of Present Illness Date Patient Seen: 12/23/19 Time Patient Seen: 13:08 Chief complaint: Fell last night, hips hurt, can't walk Narrative: 84-year-old female who is followed by Dr. Buck as an outpatient for hypertension, hyperlipidemia and hypothyroidism is brought to the ER due to inability to walk after fall 12 hours prior. Patient was found to have a hip fracture and was taken to the OR to have this fixed. Patient lives with her in a home here in [place] and otherwise denies any complaints. She had an unwitnessed fall and states that she fell backwards. This history is per the and the ER report. They deny any history of loss of consciousness or hitting her head or other injuries. It does not appear that she was syncopal or presyncopal. She has otherwise been in her usual state health. She has had no fever, chills, vomiting, diarrhea. She has had no rashes. She has had no orthopedic complaints. She has never had previous injury to her hips. She denies chest pain or shortness of breath or cough or palpitations. Discharge Providers Provider Date of admission: 12/20/19 16:58 Discharge Date: 12/23/19 Primary care physician: Consuelo Buck MD Consults: 12/20/19 14:58 Consult to Orthopedic Surgery Stat Comment: Consulting Provider: Kash Leo Reason for consultation: Femoral neck fracture Has provider been notified: Yes 12/20/19 20:58 Consult to Discharge Planning Routine Comment: Consult to Physical Therapy Evaluate & Treat Comment: Physician Instructions: post op hemiarthroplasty Consult to Respiratory Therapy Evaluate & Treat Comment: Physician Instructions: Evaluate and treat 12/21/19 08:45 Consult to Occupational Therapy Evaluate & Treat Comment: Physician Instructions: Evaluate and treat 12/22/19 12:39 Consult to Dietitian, Adult Routine Comment: Reason For Exam: acute protein malnutrition Discharge provider: Consuelo Buck MD Summary Hospital Course Discharge Diagnosis: 1. Right hip fracture, status post ORIF 2. Acute Kidney Injury, likely secondary to medications and possibly dehydration, resolved 3. Acute Protein Malnutrition 4. Hypothyroidism, chronic, controlled 5. Hypertension, chronic, controlled 6. Hyperlipidemia, chronic, controlled 7. Dementia, Alzheimer's. Hospital Course: Patient had a largely unremarkable hospital course. Pain was controlled with medications. Physical therapy progress was as expected. She did have an acute kidney injury likely secondary to medications and/or possibly dehydration. She was gently rehydrated times 12 hours and kidney function did return to normal on day of discharge. Her BNP was elevated because of this but she did not have clinical signs of volume overload with lung crackles or ankle edema. She will be discharged on her usual home medications plus 6 week course of aspirin to a [facility] facility for extended therapy. On day of discharge, she is afebrile with stable vital signs throughout. Time spent on Discharge and Coordination of post-hospital care: 35 minutes Exam Vital Signs (past 8 hours): - 12/23/19 05:30 12/23/19 07:00 12/23/19 07:31 Temperature 97.7 F 97.9 F Pulse Rate 74 71 Respiratory Rate 14 14 Blood Pressure 134/73 126/69 Pulse Oximetry 95 98 97 12/23/19 09:11 12/23/19 11:57 Temperature 97.0 F L Pulse Rate 76 106 H Respiratory Rate 18 Blood Pressure 135/77 Pulse Oximetry 98 91 Oxygen Delivery Method Nasal Cannula Oxygen Flow Rate 0 Narrative Exam Narrative: GENERAL: Alert and disoriented, appearing stated age and in no acute distress. HEENT: Head normocephalic/atraumatic. LUNGS: Clear to ausculation bilaterally, no wheezes, rhonchi or rales. CV: Normal S1 and S2 with regular rate and rhythm, no audible murmurs, rubs or gallops. ABDOMEN: Soft, non-tender, non-distended, no organomegaly. Positive bowel sounds. EXTREMITIES: Dressing right hip, clean, dry, intact. NEURO: Cranial nerves II through XII grossly intact, no focal deficits. PSYCH: Alert and oriented x 3. SKIN: No concerning lesions. Incision clean, dry, intact. Objective Labs Result Diagrams: 12/23/19 05:05 12/23/19 05:05 Labs: Laboratory Results - last 24 hr 12/23/19 12/23/19 05:05 05:05 WBC 6.4 RBC 4.02 Hgb 11.0 L Hct 32.7 L MCV 81.2 MCH 27.2 MCHC 33.5 RDW 15.0 H Plt Count 197 Neut % (Auto) 62.8 Lymph % (Auto) 23.4 L [place] % (Auto) 7.6 Eos % (Auto) 5.1 H Baso % (Auto) 1.1 Neut # (Auto) 4000 Lymph # (Auto) 1500 [place] # (Auto) 500 Eos # (Auto) 300 Baso # (Auto) 100 Sodium 135 L Potassium 3.7 Chloride 112 H Carbon Dioxide 24 BUN 20 H Creatinine 0.83 Estimated GFR > 60.0 BUN/Creatinine Ratio 24.1 H Glucose 88 Calcium 8.4 NT-Pro-B Natriuret Pep 3560 H Discharge Plan Discharge Plan Patient Disposition: SNF Transfer to: [facility] Under care of provider: Dr. Buck Discharge orders & Medications Prescriptions: New aspirin 81 mg tablet,chewable 81 mg PO BID Qty: 84 RF: 0 Continued amlodipine 5 mg Tablet 5 mg PO DAILY RF: 0 gemfibrozil 600 mg Tablet 600 mg PO DAILY RF: 0 levothyroxine 50 mcg Tablet 50 mcg PO DAILY RF: 0 Follow up/Referrals: Consuelo Buck MD [Primary Care Provider] - (SNF TO SCHEDULE FOLLOW UP APPOINTMENT.) Kash Leo MD [Physician] - (SNF TO SCHEDULE FOLLOW UP APPOINTMENT WITH DR. LEO TO BE SEEN IN 7-10 DAYS.) Discharge Health Status Precautions: [place] Diet/Activity/Treatments Diet: Diet as Tolerated Activity: PT to advance. Weightbearing as tolerated. Posterior hip precautions. Skin/Wound/Dressing Care Report to your healthcare provider any signs of infection, such as:: chills, fever, increased pain, unusual drainage and unusual redness Dressing: Change daily. Special Rehabilitation Services Reason for rehabilitation: Post-operative therapy Rehab type: Physical therapy and Occupational therapy Restrictions to mobility: PT to advance. Weight bearing as tolerated. Posterior hip precautions. Visit Report/Discharge Packet Instructions: DI for Hip Replacement, How to Prevent Falls Discharge Data Primary Care Provider: Consuelo Buck Discharges patient from system. Discharge Date/Time: 12/23/19 15:20 Quality VTE Deep Vein Thrombosis/Pulmonary Embolism Present on Admission: No
--- NOTE | 2019-12-23 13:25 | CM.DPC ---
DCP Cont: Patient is going to [facility] today. Dr. Buck is here signing discharge orders. , Rui, is at bedside. rubbish collection supervisor time is 1500. Faxed over signed med list, PASSR, discharge summary to [facility]. Will have sign updated IMM. Updated white board at main nurses station. P: Patient is to be discharged to [facility] today. Dacia García RN/Repair Supervisor
--- NOTE | 2019-12-23 14:47 | PC.NURSE ---
Pt's Borges catheter and IV have been removed at approx. 1240 in preparation for transfer to [facility]. Pt has tollerated well. She has a brief in place and report has been called and provided to the receiving nurse. Pt's is at the bedside and has questions for the care managent staff. ERIK Mcdonnell has been called, and along with Maryellen VALENCIA air traffic control supervisor, are addressing his concerns.
--- NOTE | 2019-12-23 15:08 | PT.IPTN ---
Current Diagnoses Unspecified intracapsular fracture of right femur, initial encounter for closed fracture (12/20/19) Surgery Performed Operation Date: 12/20/19 17:30 Actual Procedures p Hip Hemiarthroplasty(Right) - Kash Leo MD Physical Therapy Treatment Note M2 PT-IP Current Condition Start: 12/21/19 08:38 Freq: NEEDED Status: Active Protocol: Document 12/21/19 12:04 AW (Rec: 12/21/19 12:31 AW [id number]) Physical Therapy Current Condition Current Condition Evaluation Date 12/21/19 Treatment Diagnosis R femoral neck fracture s/p hemiarthoplasty; difficulty in walking Onset Date 12/19/19 Precautions Posterior Hip Precautions No Hip Flexion > 90 degrees,No Hip Internal Rotation,No Hip Adduction Other Precautions foam abduction pillow on at rest at all times Weight Bearing Status Weight Bearing Status Weight Bear as Tolerated Allowed Weight Bearing Amount (enter % WBAT with posterior or #) (%) precautions. Current activity order is ambulate as tolerated. M3 PT-IP Subjective Start: 12/21/19 08:38 Freq: NEEDED Status: Active Protocol: Document 12/23/19 15:08 AB (Rec: 12/23/19 15:55 AB [email or web address]) Subjective Physical Therapy Visit Type Type Treatment Note Visit Start Time 15:08 Visit Stop Time 15:24 Total Visit Minutes 16 Number of FIELD PIPE LINES SUPERVISOR Visits 0 M4 PT-IP Mobility and Gait Start: 12/21/19 08:38 Freq: NEEDED Status: Active Protocol: Document 12/23/19 15:08 AB (Rec: 12/23/19 15:55 AB [email or web address]) PT-Transfer Assessment Sit to and From Stand Sit to and from Stand Maximum Assistance,2 Person Assistance,Use of Upper Extremities Equipment Transfer Assistive Device Bed Rail Orthotic/Prosthetic Devices or Brace: No Transfers Transfer Destination Chair Transfer Technique Stand Step Pivot Transfer Ability Level of Assist Maximum Assistance,2 Person Assistance,Use of Upper Extremities Comments Mobility Comments pt discharging to SNF but nurses needs assistance with transfer. pt sitting on chair . attempted sit to stand but pt with increase posterior resistance. pt is unable to follow instructions consistently due to cognitive issues. attempted sit to stand again with PT in front of pt and FIELD PIPE LINES SUPERVISOR student behind to assist and completed max A x 2 and max cues, pt transferred to chair step transfer max A x 2 and max cues. pt was able to stand for ~ 8 sec with CGA and cues and assisted to sit down to w/ c max A. positioned pt on w/c . Left pt with nurse. M5 PT-IP Objective Assessments Start: 12/21/19 08:38 Freq: NEEDED Status: Active Protocol: Document 12/21/19 12:04 AW (Rec: 12/21/19 12:31 AW [id number]) Orientation Orientation/Cognition Level of Alertness Confusional State Orientation Name Safety Awareness Decreased Safety Awareness Memory Description Short Term Impaired,Manager Of Procurement Impaired Comments Pt has dementia and is essentially non-verbal though she does laugh and is occasionally able to follow simple commands. Gross Range of Motion Lower Extremity ROM Assessment Right Impaired Strength Lower Extremity Strength Assessment Right Impaired Sensation Assessment Comments Sensation Comments Unable to assess due to cognition M6 PT-IP Treatment Start: 12/21/19 08:38 Freq: NEEDED Status: Active Protocol: Document 12/23/19 10:17 AB (Rec: 12/23/19 13:36 AB [email or web address]) Physical Therapy Treatment Exercises Exercises Heel Slides Education Education Provided Safety M7 PT-IP Assessment and Plan Start: 12/21/19 08:38 Freq: NEEDED Status: Active Protocol: Document 12/23/19 15:08 AB (Rec: 12/23/19 15:55 AB [email or web address]) PT Summary Assessment and Plan Potential Rehabilitation Potential Good Summary Impairments Pain,ROM,Strength,Balance, Coordination,Sensation,Tone, Cognition,Bed Mobility, Transfers,Gait,Activity Tolerance Progress Towards Goals Slow Progress due to Pain,Slow Progress due to Medical Issues,Slow Progress - Other Assessment Summary pt continues to require 2 person max A and max cues and is discharging to [facility] today. Goals Bed Mobility Goal Minimal Assistance Transfer Goal Minimal Assistance,Front Wheeled Walker Gait Goal Minimal Assistance,Front Wheel Walker Gait Distance 25 Days to Meet Goals 10 Frequency of Treatment Frequency Of Treatment Twice a Day Treatment Plan Physical Therapy Treatment Plan Bed Mobility Training,Transfer Training,Gait Training, Therapeutic Exercise,Balance Retraining,Post Op Education, Discharge Planning,Hot or Cold Pack,Neuromuscular Re-ed Other Recommendations and Next Treatment bed mobility, transfers, gait Focus as able Recommendations To Nursing Amount of Assist Needed PT/OT Assist Only Discharge Recommendations PT Discharge Recommendations SNF Rehab Transportation Needs at Discharge Wheelchair/Cabulance
== END 2019-12-23 15:20 | DRG 522 ==
LOC: ED 16:49 → AC 17:00
PROVIDERS: Family Medicine; Orthopaedic Surgery Adult Reconstructive Orthopaedic Surgery; Admitting Provider Internal Medicine; Emergency Provider Emergency Medicine; Family Provider Family Medicine; PCP Student in an Organized Health Care Education/Training Program; Referring Provider Emergency Medicine; Visit Provider Student in an Organized Health Care Education/Training Program
PROC: 0SRR0JZ Replacement of Right Hip Joint, Femoral Surface with Synthetic Substitute, Open Approach (ICD-10-PCS; CPT 27125; principal; 2019-12-20 17:30)
DX: S72.011A Unspecified intracapsular fracture of right femur, initial encounter for closed fracture (principal); N17.9 Acute kidney failure, unspecified; E46 Unspecified protein-calorie malnutrition; G30.9 Alzheimer's disease, unspecified; F02.80 Dementia in other diseases classified elsewhere, unspecified severity, without behavioral disturbance, psychotic disturbance, mood disturbance, and anxiety; Z68.22 Body mass index [BMI] 22.0-22.9, adult; E03.9 Hypothyroidism, unspecified; I10 Essential (primary) hypertension; E78.5 Hyperlipidemia, unspecified; W18.30XA Fall on same level, unspecified, initial encounter; Z66 Do not resuscitate; Z11.59 Encounter for screening for other viral diseases
CPT/HCPCS: 36415; 51701; 72170; 73502; 80048; 80053; 83880; 85014; 85018; 85025; 87635; 94760; 94762; 97110; 97116; 97162; 97165; 97530; 99284; C1776; J0330; J0690; J1100; J1885; J2270; J2405; J2704; J2795; J3010; J7050

== ENCOUNTER → 2020-02-01 09:43 | Outpatient (CLI) | payer MEDICARE, SELFPAY ==
[2019-12-20 17:03] VITALS: BMI 19.6
--- NOTE | 2020-02-01 | DI.RAD.S_ITS ---
PROCEDURE: XR HIP W PEL IF DONE RT 2V INDICATIONS: FRACTURE OF RIGHT FEMUR TECHNIQUE: AP pelvis and lateral view of the right hip acquired. COMPARISON: [facility], CR, XR HIP W PEL IF DONE RT 2V, 12/20/2019, 14:28. [facility], CR, XR PELVIS WITH LATERAL HIP RIGHT, 12/31/2019, 15:41. FINDINGS: Bones: Patient is status post right hip arthroplasty, with hardware components in expected positions. The hip joint appears congruent. The visualized bony structures appear intact. Moderate left hip joint narrowing with periarticular osteophyte formation. Degenerative disc and facet disease involves the inferior lumbar spine. Soft tissues: No suspicious soft tissue densities. IMPRESSION: Stable appearance of right hip arthroplasty. Dictated by: Jag LAMAS Interpreted: Brianna Rivera MD on 02/01/2020 at 10:13 Approved by: Brianna Rivera MD, PhD on 02/01/2020 at 12:22
== END ==
PROVIDERS: PCP Student in an Organized Health Care Education/Training Program; Referring Provider Orthopaedic Surgery Adult Reconstructive Orthopaedic Surgery; Visit Provider Orthopaedic Surgery Adult Reconstructive Orthopaedic Surgery
DX: S72.011D Unspecified intracapsular fracture of right femur, subsequent encounter for closed fracture with routine healing (principal); M51.36 Other intervertebral disc degeneration, lumbar region; Z96.641 Presence of right artificial hip joint; X58.XXXD Exposure to other specified factors, subsequent encounter
CPT/HCPCS: 73502

== ENCOUNTER 2020-02-15 18:28 | Inpatient (IN) | payer MEDICARE, SELFPAY ==
[2020-02-15] VITALS (21 sets, daily range): BP systolic 88–102; BP diastolic 52–66; PULSE 98–121; RESP 20–31; TEMP 36.9; O2SAT 84–100
--- NOTE | 2020-02-15 18:33 | DI.RAD.S_ITS ---
PROCEDURE: XR CHEST 1V INDICATIONS: flu-like symptoms TECHNIQUE: One view of the chest was acquired. COMPARISON: [facility], , CHEST 1 VIEW, 12/17/2016, 20:37. FINDINGS: Surgical changes and devices: None. Lungs and pleura: No acute consolidation. No pleural effusions or pneumothorax. Mediastinum: A large hiatal hernia is redemonstrated. Heart size is enlarged. Bones and chest wall: No suspicious bony lesions. Overlying soft tissues appear unremarkable. IMPRESSION: 1. No definite evidence of pneumonia. 2. Large hiatal hernia redemonstrated. Dictated by: David Alvarez M.D. on 02/15/2020 at 19:55 Approved by: David Alvarez M.D. on 02/15/2020 at 19:57
--- NOTE | 2020-02-15 18:57 | ED_ITS ---
HPI - General Adult General Chief complaint: Shortness of Breath/Dyspnea Stated complaint: Low O2 Time Seen by Provider: 02/15/20 18:35 Source: family () and EMS Mode of arrival: EMS Limitations: other (Dementia) History of Present Illness HPI narrative: Patient is an 84-year-old female brought in by EMS for concerns of low oxygen saturations peer she is here with her at bedside. Within the past 60 days patient was seen by myself admitted to the hospital for a right-sided femoral neck fracture. She had a surgical fixation was discharged home to a rehab facility. She was there for just over 40 days and just recently returned back home with her . Her states that a couple days ago he noticed that her behaviors changed somewhat. Had somewhat of a difficult time describing exactly what this change was but did notice that she was not eating or drinking as much. Is reported by EMS that home health was at the house today at approximately 0200 hours in the afternoon and had oxygen saturations that were very low. His reported that the saturations were in the 60s. It was several hours after this that EMS was called to bring her to the emergency department. I am unsure as to why there was a delay in calling EMS. Upon arrival patient unable to provide any HPI. Unable to provide any review of systems. Her provides all information. Related Data Home Medications Medication Instructions Recorded Confirmed amlodipine 5 mg PO DAILY 12/20/19 02/16/20 gemfibrozil 600 mg PO DAILY 12/20/19 02/16/20 levothyroxine 50 mcg PO DAILY 12/20/19 02/16/20 Previous Rx's Medication Instructions Recorded aspirin 81 mg PO BID #84 tab 12/23/19 Allergies Allergy/AdvReac Type Severity Reaction Status Date / Time hydrochlorothiazide Allergy Severe Cough Verified 02/15/20 18:36 [HYDROCHLOROTHIAZIDE] lisinopril [LISINOPRIL] AdvReac Intermediate COUGH Verified 02/15/20 18:36 Review of Systems Review of Systems ROS Unobtainable: Unobtainable due to mental status/LOC Patient History Medical History Cholelithiasis Dementia Depression Hyperlipemia Hypertension Hypothyroid Pancreatitis Social History household members: spouse Smoking Status: Never smoker alcohol intake: current Smoking Status: Never smoker alcohol intake frequency: holidays/special occasions only Substance Use Type: does not use Exam Initial Vital Signs Initial Vital Signs: Vital Signs Temperature 98.4 F 02/15/20 18:31 Pulse Rate 113 H 02/15/20 18:31 Blood Pressure 88/57 L 02/15/20 18:31 Pulse Oximetry 85 L 02/15/20 18:31 Const General: in distress, frail appearing and ill appearing Nutritional Appearance: cachectic Limitations: altered mental status HENMT Head: normal to inspection and normocephalic Resp Effort & Inspection: not labored and tachypneic Auscultation: clear to auscultation bilaterally Cardio Rate: tachycardic Rhythm: regular rhythm GI Inspection: non-distended Palpation: soft Skin Lesions: no lesions Rashes: no rashes Neuro General: moves all extremities Other: Does not follow commands, does not speak, Extrem General: No edema Psych Appearance: well kempt Scores GCS Hope coma scale eye opening: Spontaneous Ahsan coma scale verbal response: None Hope coma scale motor response: Localising Ahsan coma scale total score: 10 Course Orders Ordered: ED Orders 02/15/20 21:00 Lactate (Lactic Acid) Stat 02/15/20 21:02 C-Reactive Protein Quant Stat Comprehensive Metabolic Panel Stat Ferritin Stat Lactate Dehydrogenase Stat NT-proBNP (BNP-Adult 18+) Stat Procalcitonin Stat Troponin & CK Cardiac Panel Stat 02/15/20 21:55 Urinalysis and Microscopic Stat Urine Culture Stat 02/16/20 06:00 Complete Blood Count AUTO DIFF Stat Comprehensive Metabolic Panel Stat Lactate (Lactic Acid) Stat Troponin & CK Cardiac Panel Stat Sodium Chloride (Normal Saline 0.9%) 1,000 mls @ 125 mls/hr IV CONT WILLARD Last Infusion: 02/16/20 02:05 Dose: 125 mls/hr Documented by: Admin: 02/15/20 20:44 Dose: 125 mls/hr Documented by: NATIVIDAD Ondansetron HCl (Ondansetron 4 Mg/2 Ml Inj) 4 mg IV Q4HR PRN PRN Reason: Nausea And Vomiting Discontinued Medications Ceftriaxone Sodium/Dextrose (Rocephin) 1 gm in 50 mls @ 100 mls/hr IV NOW ONE Stop: 02/15/20 22:05 Last Infusion: 02/15/20 22:47 Dose: 0 mls/hr Documented by: Admin: 02/15/20 22:01 Dose: 100 mls/hr Documented by: NATIVIDAD Vancomycin HCl (Vancomycin) 1,000 mg in 200 mls @ 200 mls/hr IV NOW ONE Stop: 02/15/20 22:35 Last Infusion: 02/16/20 00:08 Dose: 0 mls/hr Documented by: Admin: 02/15/20 22:30 Dose: 200 mls/hr Documented by: NATIVIDAD Sodium Chloride (Normal Saline 0.9%) 1,000 mls @ 125 mls/hr IV CONT WILLARD Last Admin: 02/15/20 21:59 Dose: Not Given Documented by: NATIVIDAD Vital Signs Vital signs: Vital Signs - 8 hr 02/15/20 21:15 02/15/20 21:30 02/15/20 21:45 Pulse Rate 109 H 109 H 109 H Respiratory Rate 26 H 27 H 26 H Pulse Oximetry 97 97 88 L 02/15/20 22:00 02/15/20 22:15 02/15/20 22:30 Pulse Rate 109 H 109 H 107 H Respiratory Rate 26 H 29 H 25 H Pulse Oximetry 95 95 95 02/15/20 22:45 02/15/20 23:00 02/15/20 23:15 Pulse Rate 103 H 101 H 104 H Respiratory Rate 25 H 23 20 Pulse Oximetry 98 98 98 02/15/20 23:30 02/15/20 23:45 02/16/20 00:00 Pulse Rate 102 H 98 H 100 H Respiratory Rate 25 H 25 H 25 H Pulse Oximetry 98 97 95 02/16/20 00:15 Pulse Rate 100 H Respiratory Rate 25 H Pulse Oximetry 90 L Medical Decision Making Medical Records Medical records reviewed: Yes I reviewed the patient's medical records. Lab Data Lab results reviewed: Yes I reviewed the patient's lab results. Result diagrams: 02/15/20 18:33 02/15/20 21:02 Labs: Lab Results 02/15/20 02/15/20 02/15/20 Range/Units 18:33 19:22 21:00 WBC 29.2 H (4.5-11.0) X10^3/uL RBC 5.48 H (4.0-5.2) X10^6/uL Hgb 14.8 (12.0-16.0) g/dL Hct 46.1 H (36-46) % MCV 84.1 (80-100) fL MCH 26.9 (26-34) PG MCHC 32.0 (30-36) % RDW 15.6 H (11.6-14.8) % Plt Count 189 (150-400) X10^3/uL Neut % (Auto) Not Reportable Lymph % (Auto) Not Reportable [place] % (Auto) Not Reportable Eos % (Auto) Not Reportable Baso % (Auto) Not Reportable Lymph # (Auto) Not Reportable [place] # (Auto) Not Reportable Baso # (Auto) Not Reportable Total Counted 100 Seg Neutrophils % 92.0 H (38-70) % Band Neutrophils % 4.0 (3-7) % Lymphocytes % (Manual) 1.0 L (25-45) % Monocytes % (Manual) 3.0 (2-11) % Neutrophils # (Manual) 39902 H (4831-6622) /uL RBC Morphology Not Reportable Anisocytosis 1+ H Sodium (137-145) mmol/L Potassium (3.4-5.1) mmol/L Chloride (98-107) mmol/L Carbon Dioxide (22-32) mmol/L BUN (7-17) mg/dL Creatinine (0.52-1.04) mg/dL Estimated GFR (>60) mL/min BUN/Creatinine Ratio (6-22) Glucose (80-110) mg/dL Lactate 4.4 H* (0.7-2.1) mmol/L Calcium (8.4-10.2) mg/dL Ferritin (11-264) ng/mL Total Bilirubin (0.2-1.3) mg/dL AST (14-36) IU/L ALT (<35) IU/L Alkaline Phosphatase (38-126) U/L Lactate Dehydrogenase (313-618) U/L Total Creatine Kinase (30-135) U/L CK-MB (CK-2) (<2.37) ng/mL CK-MB (CK-2) Rel Index (1.5-5.0) % Troponin I (0.01-0.034) ng/mL C-Reactive Protein (<1.0) mg/dL NT-Pro-B Natriuret Pep (<450) pg/mL Total Protein (6.3-8.2) g/dL Albumin (3.5-5.0) g/dL Globulin (1.7-4.1) g/dL Albumin/Globulin Ratio (1.0-2.8) Procalcitonin (<0.5) ng/mL Urine Color Urine Appearance Urine pH (4.5-8.0) Ur Specific [place] (1.000-1.035) Urine Protein (Negative) Urine Glucose (UA) (Negative) g/dL Urine Ketones (NEGATIVE) Urine Occult Blood (Negative) Urine Nitrate (Negative) Urine Bilirubin (NEGATIVE) Urine Urobilinogen (0.2) E.U./dL Ur Leukocyte Esterase (NEGATIVE) Urine RBC (0-5/HPF) Urine WBC (0-5/HPF) Urine Bacteria (None) Ur Culture Indicated? SARS-CoV-2 (PCR) Negative (Negative) 02/15/20 02/15/20 02/15/20 Range/Units 21:02 21:02 21:55 WBC (4.5-11.0) X10^3/uL RBC (4.0-5.2) X10^6/uL Hgb (12.0-16.0) g/dL Hct (36-46) % MCV (80-100) fL MCH (26-34) PG MCHC (30-36) % RDW (11.6-14.8) % Plt Count (150-400) X10^3/uL Neut % (Auto) Lymph % (Auto) [place] % (Auto) Eos % (Auto) Baso % (Auto) Lymph # (Auto) [place] # (Auto) Baso # (Auto) Total Counted Seg Neutrophils % (38-70) % Band Neutrophils % (3-7) % Lymphocytes % (Manual) (25-45) % Monocytes % (Manual) (2-11) % Neutrophils # (Manual) (8479-4977) /uL RBC Morphology Anisocytosis Sodium 154 H (137-145) mmol/L Potassium 4.5 (3.4-5.1) mmol/L Chloride 119 H (98-107) mmol/L Carbon Dioxide 20 L (22-32) mmol/L BUN 137 H* (7-17) mg/dL Creatinine 4.72 H (0.52-1.04) mg/dL Estimated GFR 8.8 L (>60) mL/min BUN/Creatinine Ratio 29.0 H (6-22) Glucose 164 H (80-110) mg/dL Lactate (0.7-2.1) mmol/L Calcium 9.3 (8.4-10.2) mg/dL Ferritin 110 (11-264) ng/mL Total Bilirubin 1.5 H (0.2-1.3) mg/dL AST 35 (14-36) IU/L ALT 26 (<35) IU/L Alkaline Phosphatase 146 H (38-126) U/L Lactate Dehydrogenase 872 H (313-618) U/L Total Creatine Kinase 117 (30-135) U/L CK-MB (CK-2) 2.81 H (<2.37) ng/mL CK-MB (CK-2) Rel Index 2.4 (1.5-5.0) % Troponin I 0.174 H* (0.01-0.034) ng/mL C-Reactive Protein 22.4 H (<1.0) mg/dL NT-Pro-B Natriuret Pep 3420 H (<450) pg/mL Total Protein 7.0 (6.3-8.2) g/dL Albumin 3.2 L (3.5-5.0) g/dL Globulin 3.8 (1.7-4.1) g/dL Albumin/Globulin Ratio 0.8 L (1.0-2.8) Procalcitonin 1.48 H (<0.5) ng/mL Urine Color Yellow Urine Appearance Sl cloudy Urine pH 5.0 (4.5-8.0) Ur Specific [place] 1.020 (1.000-1.035) Urine Protein Negative (Negative) Urine Glucose (UA) Trace H (Negative) g/dL Urine Ketones Negative (NEGATIVE) Urine Occult Blood Trace-lysed (Negative) Urine Nitrate Negative (Negative) Urine Bilirubin Negative (NEGATIVE) Urine Urobilinogen 0.2 (0.2) E.U./dL Ur Leukocyte Esterase Trace H (NEGATIVE) Urine RBC None seen (0-5/HPF) Urine WBC 0-1/hpf (0-5/HPF) Urine Bacteria Many (>30) H (None) Ur Culture Indicated? Specimen cultured SARS-CoV-2 (PCR) (Negative) 02/15/20 Range/Units 23:30 WBC (4.5-11.0) X10^3/uL RBC (4.0-5.2) X10^6/uL Hgb (12.0-16.0) g/dL Hct (36-46) % MCV (80-100) fL MCH (26-34) PG MCHC (30-36) % RDW (11.6-14.8) % Plt Count (150-400) X10^3/uL Neut % (Auto) Lymph % (Auto) [place] % (Auto) Eos % (Auto) Baso % (Auto) Lymph # (Auto) [place] # (Auto) Baso # (Auto) Total Counted Seg Neutrophils % (38-70) % Band Neutrophils % (3-7) % Lymphocytes % (Manual) (25-45) % Monocytes % (Manual) (2-11) % Neutrophils # (Manual) (4291-0173) /uL RBC Morphology Anisocytosis Sodium (137-145) mmol/L Potassium (3.4-5.1) mmol/L Chloride (98-107) mmol/L Carbon Dioxide (22-32) mmol/L BUN (7-17) mg/dL Creatinine (0.52-1.04) mg/dL Estimated GFR (>60) mL/min BUN/Creatinine Ratio (6-22) Glucose (80-110) mg/dL Lactate 4.0 H (0.7-2.1) mmol/L Calcium (8.4-10.2) mg/dL Ferritin (11-264) ng/mL Total Bilirubin (0.2-1.3) mg/dL AST (14-36) IU/L ALT (<35) IU/L Alkaline Phosphatase (38-126) U/L Lactate Dehydrogenase (313-618) U/L Total Creatine Kinase (30-135) U/L CK-MB (CK-2) (<2.37) ng/mL CK-MB (CK-2) Rel Index (1.5-5.0) % Troponin I (0.01-0.034) ng/mL C-Reactive Protein (<1.0) mg/dL NT-Pro-B Natriuret Pep (<450) pg/mL Total Protein (6.3-8.2) g/dL Albumin (3.5-5.0) g/dL Globulin (1.7-4.1) g/dL Albumin/Globulin Ratio (1.0-2.8) Procalcitonin (<0.5) ng/mL Urine Color Urine Appearance Urine pH (4.5-8.0) Ur Specific [place] (1.000-1.035) Urine Protein (Negative) Urine Glucose (UA) (Negative) g/dL Urine Ketones (NEGATIVE) Urine Occult Blood (Negative) Urine Nitrate (Negative) Urine Bilirubin (NEGATIVE) Urine Urobilinogen (0.2) E.U./dL Ur Leukocyte Esterase (NEGATIVE) Urine RBC (0-5/HPF) Urine WBC (0-5/HPF) Urine Bacteria (None) Ur Culture Indicated? SARS-CoV-2 (PCR) (Negative) Imaging Data Chest x-ray: Radiologist's Impression: [address] [id number] ReportSigned Patient: [facility]#: [id number]: 6Acct:[id number]/Sex: 84 / FDate of Service: 02/15/20Loc: EDAccession Number: [id number] Procedure: XR chest 1V Ordering Provider: Torres Townsend D.O. PROCEDURE: XR CHEST 1V INDICATIONS: flu-like symptoms TECHNIQUE: One view of the chest was acquired. COMPARISON: [facility], CHEST 1 VIEW, 12/17/2016, 20:37. FINDINGS: Surgical changes and devices: None. Lungs and pleura: No acute consolidation. No pleural effusions or pneumothorax. Mediastinum: A large hiatal hernia is redemonstrated. Heart size is enlarged. Bones and chest wall: No suspicious bony lesions. Overlying soft tissues appear unremarkable. IMPRESSION: 1. No definite evidence of pneumonia. 2. Large hiatal hernia redemonstrated. Dictated by: David Alvarez M.D. on 02/15/2020 at 19:55 Approved by: David Alvarez M.D. on 02/15/2020 at 19:57 CT scan - head: Radiologist's Impression: [address] [id number] Scan ReportSigned Patient: Karla [facility]atorre [facility]#: [id number]: 6Acct:[id number]/Sex: 84 / FDate of Service: 02/15/20Loc: EDAccession Number: [id number] Procedure: CT head/brain wo con Ordering Provider: Torres Townsend D.O. PROCEDURE: CT HEAD/BRAIN WO CON INDICATIONS: ALTERED MENTAL STATUS TECHNIQUE: Noncontrast 4.5 mm thick angled axial sections acquired from the foramen magnum to the vertex, with coronal and sagittal reformats. For radiation dose reduction, the following was used: automated exposure control, adjustment of mA and/or kV according to patient size. COMPARISON: [facility], CT, HEAD WITHOUT CONTRAST, 07/07/2016, 18:42. FINDINGS: Image quality: Excellent. Also has an elevated procalcitonin CSF spaces: Basal cisterns are patent. No extra-axial fluid collections. There is moderate cerebral volume loss, with resultant ventricular and sulcal prominence. Brain: No intracranial hemorrhage, mass, or mass effect. Encephalomalacia is demonstrated in the right frontal lobe consistent with sequelae of a prior infarct. There are subcortical, periventricular and deep white matter hypodensities c onsistent with moderate to severe chronic small vessel ischemic changes. There is intracranial internal carotid artery atherosclerosis. Skull and face: Calvarium and visualized facial bones appear intact, without suspicious lesions. Sinuses: Visualized sinuses and mastoids are clear. IMPRESSION: 1. No definite acute intracranial abnormality. 2. 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 3. Moderate to severe chronic white matter small vessel ischemic changes and moderate cerebral volume loss. Dictated by: David Alvarez M.D. on 02/15/2020 at 20:06 Approved by: David Alvarez M.D. on 02/15/2020 at 20:08 ECG Data Attestation: I personally reviewed and interpreted this ECG as follows: Prior ECG tracings: not available for review Interpretation: Sinus tachycardia Ventricular rate of 120 Left axis deviation Normal QRS LVH MDM Narrative Medical decision making narrative: Patient appeared sick upon arrival. Was hypoxic however this improved with oxygen by nasal cannula. Was tachycardic but no signs of ischemia. Chest x-ray was unremarkable. Given her recent surgery, baseline neurologic status, recent stay at nursing facility I do have some concern about a pulmonary embolism however given her creatinine today were unable to obtain a PE study. Her creatinine today is much worse than what it has been in the past. Unsure the etiology of this however her states that she has not been eating and drinking well recently. This could be a pre renal issue. A Borges catheter was placed and there were bacteria in the u rinalysis. She also has a leukocytosis. Also has an elevated lactate. Also has an elevated procalcitonin. Cultures were obtained. Broad-spectrum antibiotics started. Fluids administered. She also has a slight bump in her troponin. Had a long discussion with the regarding his 's c ondition. I did inform him that she had multi organ issues to include her heart, lungs, kidneys, and also the fact that there is most likely an infection which I suspect is her urine. We did discuss the possibility of a pulmonary embolism given her presentation as well and the unfortunate situation that we cannot obtain a CT scan of the chest. We discussed prophylactically treated with anticoagulation and the risks and benefits of this. I tried to express to the patient's that his was very sick. Tried to express my concern given her multi were gated issues that this could potentially be life- threatening. We discussed the risks the benefits of further testing/treatment for issues to include cardiovascular disease and pulmonary embolism. After this discussion the patient's stated that he would like to continue with IV fluids and antibiotics but agreed with holding on any anticoagulation for now. He stated that he agreed with admitted to the hospital for fluids and antibiotics and observing for the next several hours/days to see whether not her condition improved and then making decisions along the way as to further evaluation and treatment. He agreed that if during this time she acutely became worse to include worsening respiratory status or cardiovascular collapse that he did not want resuscitative efforts to include intubation and CPR. I discussed the case with Dr. Robbins who is on-call for the patient's primary doctor who agreed to admit the patient for further evaluation and treatment. She asked that the patient be admitted under Dr. Buck. Holding orders and morning labs were ordered per request of admitting provider. Patient will be admitted for further evaluation. Critical Care Time Critical Care Time Critical Care Time: Yes Total Critical Care Time: 35 Attestation: The high probability of a clinically significant, sudden or life threatening deterioration of the respiratory, cardiovascular, renal system(s) required my full and direct attention, intervention and personal management. The aggregate critical care time was 35 minutes. This time is in addition to time spent perf orming reported procedures but includes the following: X [] Data Review and interpretation [X] Patient assessment and monitoring of vital signs [X] Documentation [X] Medication orders and management Discharge Plan Departure Patient Disposition: Admitted As Inpatient Clinical Impression: Sepsis, Hypoxia, Acute renal failure, Altered mental status, Tachycardia Admit Date/Time: 02/16/20 00:15 Admit Provider: Consuelo Buck
[2020-02-15 19:41] LABS: COVID19 -Nasal RAPID Negative (Negative)
[2020-02-15] MEDS: SODIUM CHLORIDE 0.9% 1,000 ML 125 ML IV (20:44)
[2020-02-15 21:10] LABS: Hematocrit 46.1 % (36-46); Hemoglobin 14.8 g/dL (12.0-16.0); Mean Corpuscular Hemoglobin 26.9 PG (26-34); Mean Corpuscular Volume 84.1 fL (80-100); Platelet Count 189 X10^3/uL (150-400); Red Blood Cell Count 5.48 X10^6/uL (4.0-5.2); Red Cell Distribution Width 15.6 % (11.6-14.8); White Blood Cell Count 29.2 X10^3/uL (4.5-11.0)
[2020-02-15 21:11] LABS: Add Manual Diff / Slide Review YES
[2020-02-15 21:24] LABS: Neutrophils Absolute Manual 28032 /uL (3000-5900); Total Cells Counted 100
[2020-02-15 21:25] LABS: Anisocytosis 1+
[2020-02-15 21:34] LABS: Lactate (Lactic Acid) 4.4 mmol/L (0.7-2.1)
[2020-02-15 21:41] LABS: Procalcitonin 1.48 ng/mL (<0.5)
[2020-02-15 21:48] LABS: Alanine Aminotransferase 26 IU/L (<35); Albumin 3.2 g/dL (3.5-5.0); Albumin Globulin Ratio 0.8 (1.0-2.8); Alkaline Phosphatase 146 U/L (38-126); Aspartate Aminotransferase 35 IU/L (14-36); Bilirubin Total 1.5 mg/dL (0.2-1.3); Calcium 9.3 mg/dL (8.4-10.2); Carbon Dioxide 20 mmol/L (22-32); Chloride 119 mmol/L (98-107); Creatine Kinase 117 U/L (30-135); Globulin 3.8 g/dL (1.7-4.1); Glucose 164 mg/dL (80-110); HEMOLYSIS 20 (0-50); Potassium 4.5 mmol/L (3.4-5.1); Sodium 154 mmol/L (137-145)
[2020-02-15 21:53] LABS: Estimated Glomerular Filt Rate 8.8 mL/min (>60)
[2020-02-15 21:57] LABS: Blood Urea Nitrogen 137 mg/dL (7-17)
--- NOTE | 2020-02-15 21:57 | PC.NURSE ---
Borges cath placed with 400ml of dark foul smelling urine, UA sent to lab.
[2020-02-15 21:59] LABS: NT-proBNP (BNP-Adult 18+) 3420 pg/mL (<450)
[2020-02-15 22:00] LABS: Appearance Urine UA SL CLOUDY; Bilirubin Urine UA NEGATIVE (NEGATIVE); Color Urine UA YELLOW; Glucose Urine UA TRACE g/dL (Negative); Ketones Urine UA NEGATIVE (NEGATIVE); Leukocyte Esterase Urine UA TRACE (NEGATIVE); Nitrite Urine UA NEGATIVE (Negative); Occult Blood Urine UA TRACE-LYSED (Negative); Protein Urine UA NEGATIVE (Negative); RBC Urine None Seen (0-5/HPF); Urobilinogen Urine UA 0.2 E.U./dL (0.2)
[2020-02-15] MEDS: CEFTRIAXONE 1 GM/50 ML FROZ.PIGGY IV (22:01)
[2020-02-15 22:02] LABS: Troponin I 0.174 ng/mL (0.01-0.034)
[2020-02-15 22:03] LABS: CKMB % Relative Index 2.4 % (1.5-5.0); Creatine Kinase MB 2.81 ng/mL (<2.37)
[2020-02-15 22:06] LABS: Bacteria Urine Many (>30); Culture Indicated Urine Specimen Cultured; WBC Urine 0-1/HPF (0-5/HPF)
[2020-02-15 22:22] LABS: Ferritin 110 ng/mL (11-264)
[2020-02-15] MEDS: VANCOMYCIN 1,000 MG/200 ML PIGGYBACK 200 MG IV (22:30)
[2020-02-15 23:09] LABS: Lactate Dehydrogenase 872 U/L (313-618)
[2020-02-15 23:19] LABS: Reflexed Lactate in 2 Hours Y
[2020-02-15 23:22] LABS: C-Reactive Protein Quant 22.4 mg/dL (<1.0)
[2020-02-16] VITALS (11 sets, daily range): BP systolic 98–121; BP diastolic 60–81; PULSE 96–104; RESP 12–25; TEMP 36.1–36.3; O2SAT 90–100; BMI 20.7
[2020-02-16] MEDS: SODIUM CHLORIDE 0.9% 1,000 ML 125 ML IV (06:19)
[2020-02-16 06:29] LABS: Hematocrit 43.9 % (36-46); Hemoglobin 14.1 g/dL (12.0-16.0); Mean Corpuscular HGB Conc 32.1 % (30-36); Mean Corpuscular Volume 84.1 fL (80-100); Platelet Count 153 X10^3/uL (150-400); Red Blood Cell Count 5.23 X10^6/uL (4.0-5.2); Red Cell Distribution Width 15.7 % (11.6-14.8); White Blood Cell Count 29.3 X10^3/uL (4.5-11.0)
[2020-02-16 06:32] LABS: Add Manual Diff / Slide Review YES
[2020-02-16 06:41] LABS: Lactate (Lactic Acid) 2.9 mmol/L (0.7-2.1)
[2020-02-16 06:47] LABS: Alanine Aminotransferase 23 IU/L (<35); Albumin 2.8 g/dL (3.5-5.0); Albumin Globulin Ratio 0.8 (1.0-2.8); Alkaline Phosphatase 130 U/L (38-126); Aspartate Aminotransferase 33 IU/L (14-36); Bilirubin Total 1.2 mg/dL (0.2-1.3); Calcium 8.7 mg/dL (8.4-10.2); Carbon Dioxide 18 mmol/L (22-32); Chloride 120 mmol/L (98-107); Creatine Kinase 131 U/L (30-135); Globulin 3.4 g/dL (1.7-4.1); Glucose 134 mg/dL (80-110); HEMOLYSIS 20 (0-50); Potassium 4.5 mmol/L (3.4-5.1); Sodium 152 mmol/L (137-145); Total Protein 6.2 g/dL (6.3-8.2)
[2020-02-16 06:53] LABS: Estimated Glomerular Filt Rate 9.2 mL/min (>60)
[2020-02-16 06:58] LABS: BUN Creatinine Ratio 31.1 (6-22)
[2020-02-16 06:59] LABS: Neutrophils Absolute Manual 27542 /uL (3000-5900); Total Cells Counted 100
[2020-02-16 07:00] LABS: Anisocytosis 1+; Blood Urea Nitrogen 142 mg/dL (7-17); Troponin I 0.136 ng/mL (0.01-0.034)
[2020-02-16 07:01] LABS: Polychromasia 1+
[2020-02-16 07:02] LABS: Burr Cells 2+; Ovalocytes 1+
[2020-02-16 07:39] LABS: CKMB % Relative Index 2.9 % (1.5-5.0); Creatine Kinase MB 3.84 ng/mL (<2.37)
[2020-02-16 08:21] LABS: Reflexed Lactate in 2 Hours Y
--- NOTE | 2020-02-16 08:31 | PM.HP.1 ---
History of Present Illness History of Present Illness Date Patient Seen: 02/16/20 Time Patient Seen: 08:32 Date of Onset of Symptoms: 02/13/20 Chief complaint: Low O2 Narrative: This 84-year-old female whom was brought to the emergency room by her due to inability to take p.o. and having progressive decline in her condition. She was hospitalized December 20 for a hip fracture and had surgical repair and then apparently spent 40 days in skilled care facility. She was being visited yesterday by home health and they noted that she had decreased vitals and was reportedly not taking p.o. for several days and therefore her from office and we recommended that he go to the emergency department to have her evaluated. Oral room on presentation to the emergency department patient was found to be tachypneic and hypoxic with O2 sat in the 80s on room air. Patient was thought to have urosepsis with hypotension and hypoxemia and also leukocytosis and rule acute renal failure or with a GFR of 8. And her urine was significant for bacteria and blood cultures are pending. She received IV ceftriaxone and vancomycin. There was extended discussion with her and he wanted an attempt at reversing this with IV fluids and antibiotics only. He did not want heroics. He understood that admitting her to the hospital here we would be unable to do dialysis and he was clear that he did not want her heroic ?measures but did want IV fluid and antibiotics to see if this could be for reversed with this limited intervention. Overnight patient has had no change in her condition other than she is making urine. She had 450 cc out of her Borges catheter. She is afebrile. She is nonverbal. Past medical history: 1. Hypertension 2. Hyperlipidemia 3. Hypothyroidism 4. Dementia 5. Recent hip fracture Current medications amlodipine 5 mg daily, gemfibrozil 600 mg daily, levothyroxine 50 mcg daily a hydrochlorothiazide and lisinopril causes a cough Past surgical history: Surgical repair of hip fracture December 2019 Health related behavior Patient does not smoke through never was a smoker Patient does not use alcohol on a regular basis Social history: Patient lives over in a home with her in [facility]. Recently was discharged from skilled care facility . Patient has a daughter who lives in [facility] I believe Family history: I am unable to obtain at this time. Evaluation of previous H& P show no evidence of pertinent family history Review of systems: Patient has not had cough or shortness of breath Patient has not had bright red blood per rectum or black tarry stools Patient has not had a fever No rashes Reportedly patient has had progressive decline in her condition and progressive worsening p.o. intake. Patient History Medical History Cholelithiasis Dementia Depression Hyperlipemia Hypertension Hypothyroid Pancreatitis Family & Social History Social History: household members spouse Tobacco & Substance use: Smoking Status Never smoker alcohol intake current alcohol intake frequency holiday/special occasion Substance Use Type does not use Meds Home Medications and Allergies Home Medications Medication Instructions Recorded Confirmed Type amlodipine 5 mg PO DAILY 12/20/19 02/16/20 History gemfibrozil 600 mg PO DAILY 12/20/19 02/16/20 History levothyroxine 50 mcg PO DAILY 12/20/19 02/16/20 History aspirin 81 mg PO BID #84 tab 12/23/19 Rx Allergies Allergy/AdvReac Type Severity Reaction Status Date / Time hydrochlorothiazide Allergy Severe Cough Verified 02/15/20 18:36 [HYDROCHLOROTHIAZIDE] lisinopril [LISINOPRIL] AdvReac Intermediate COUGH Verified 02/15/20 18:36 Exam Vital Signs (past 8 hours): - 02/16/20 00:44 02/16/20 00:45 02/16/20 01:00 Temperature 97.0 F L Pulse Rate 96 H 96 H 99 H Respiratory Rate 24 24 12 Blood Pressure 98/61 120/72 Pulse Oximetry 98 98 100 02/16/20 02:47 02/16/20 04:31 Temperature 97.0 F L Pulse Rate 100 H 102 H Respiratory Rate 18 12 Blood Pressure 121/81 Pulse Oximetry 100 98 Oxygen Delivery Method Room Air Oxygen Flow Rate 0 Narrative Exam Narrative: Patient is nonverbal. She is lying in the hospital bed in no apparent distress. She is not able to follow commands. O2 sat is stable on room air Vital signs are normal Patient appears cachectic and very pale HEENT: Mucous membranes dry without evidence of thrush or other lesions Neck: Supple without adenopathy or thyromegaly or bruits. No mass Chest: Clear to auscultation without wheezes rhonchi or crackles Cor: Regular rate and rhythm in the upper 90s Abdomen: Positive bowel sounds, soft, no hepatosplenomegaly, no guarding, no rebound Extremities: No edema. She has decreased pulses dorsalis pedis and posterior tibialis right lower extremity with capillary refill time greater than 3 seconds and some mottling and foot is cool. Left foot shows capillary refill time 3 seconds and dorsalis pedis pulses 1+ Neurologic exam is nonfocal Objective Labs Result Diagrams: 02/16/20 06:14 02/16/20 06:14 Labs: Laboratory Results - last 24 hr 02/15/20 02/15/20 02/15/20 18:33 19:22 21:00 WBC 29.2 H RBC 5.48 H Hgb 14.8 Hct 46.1 H MCV 84.1 MCH 26.9 MCHC 32.0 RDW 15.6 H Plt Count 189 Neut % (Auto) Not Reportable Lymph % (Auto) Not Reportable [place] % (Auto) Not Reportable Eos % (Auto) Not Reportable Baso % (Auto) Not Reportable Lymph # (Auto) Not Reportable [place] # (Auto) Not Reportable Baso # (Auto) Not Reportable Total Counted 100 Seg Neutrophils % 92.0 H Band Neutrophils % 4.0 Lymphocytes % (Manual) 1.0 L Atypical Lymphs % Monocytes % (Manual) 3.0 Metamyelocytes % Neutrophils # (Manual) 54777 H Plt Morphology Comment RBC Morphology Not Reportable Polychromasia Anisocytosis 1+ H Ovalocytes Marian Cells Sodium Potassium Chloride Carbon Dioxide BUN Creatinine Estimated GFR BUN/Creatinine Ratio Glucose Lactate 4.4 H* Calcium Ferritin Total Bilirubin AST ALT Alkaline Phosphatase Lactate Dehydrogenase Total Creatine Kinase CK-MB (CK-2) CK-MB (CK-2) Rel Index Troponin I C-Reactive Protein NT-Pro-B Natriuret Pep Total Protein Albumin Globulin Albumin/Globulin Ratio Procalcitonin Urine Color Urine Appearance Urine pH Ur Specific [place] Urine Protein Urine Glucose (UA) Urine Ketones Urine Occult Blood Urine Nitrate Urine Bilirubin Urine Urobilinogen Ur Leukocyte Esterase Urine RBC Urine WBC Urine Bacteria Ur Culture Indicated? SARS-CoV-2 (PCR) Negative 02/15/20 02/15/20 02/15/20 21:02 21:02 21:55 WBC RBC Hgb Hct MCV MCH MCHC RDW Plt Count Neut % (Auto) Lymph % (Auto) [place] % (Auto) Eos % (Auto) Baso % (Auto) Lymph # (Auto) [place] # (Auto) Baso # (Auto) Total Counted Seg Neutrophils % Band Neutrophils % Lymphocytes % (Manual) Atypical Lymphs % Monocytes % (Manual) Metamyelocytes % Neutrophils # (Manual) Plt Morphology Comment RBC Morphology Polychromasia Anisocytosis Ovalocytes Marian Cells Sodium 154 H Potassium 4.5 Chloride 119 H Carbon Dioxide 20 L BUN 137 H* Creatinine 4.72 H Estimated GFR 8.8 L BUN/Creatinine Ratio 29.0 H Glucose 164 H Lactate Calcium 9.3 Ferritin 110 Total Bilirubin 1.5 H AST 35 ALT 26 Alkaline Phosphatase 146 H Lactate Dehydrogenase 872 H Total Creatine Kinase 117 CK-MB (CK-2) 2.81 H CK-MB (CK-2) Rel Index 2.4 Troponin I 0.174 H* C-Reactive Protein 22.4 H NT-Pro-B Natriuret Pep 3420 H Total Protein 7.0 Albumin 3.2 L Globulin 3.8 Albumin/Globulin Ratio 0.8 L Procalcitonin 1.48 H Urine Color Yellow Urine Appearance Sl cloudy Urine pH 5.0 Ur Specific [place] 1.020 Urine Protein Negative Urine Glucose (UA) Trace H Urine Ketones Negative Urine Occult Blood Trace-lysed Urine Nitrate Negative Urine Bilirubin Negative Urine Urobilinogen 0.2 Ur Leukocyte Esterase Trace H Urine RBC None seen Urine WBC 0-1/hpf Urine Bacteria Many (>30) H Ur Culture Indicated? Specimen cultured SARS-CoV-2 (PCR) 02/15/20 02/16/20 02/16/20 23:30 06:14 06:14 WBC 29.3 H RBC 5.23 H Hgb 14.1 Hct 43.9 MCV 84.1 MCH 27.0 MCHC 32.1 RDW 15.7 H Plt Count 153 Neut % (Auto) Not Reportable Lymph % (Auto) Not Reportable [place] % (Auto) Not Reportable Eos % (Auto) Not Reportable Baso % (Auto) Not Reportable Lymph # (Auto) Not Reportable [place] # (Auto) Not Reportable Baso # (Auto) Not Reportable Total Counted 100 Seg Neutrophils % 86.0 H Band Neutrophils % 8.0 H Lymphocytes % (Manual) Atypical Lymphs % 1.0 H Monocytes % (Manual) 4.0 Metamyelocytes % 1.0 H Neutrophils # (Manual) 08209 H Plt Morphology Comment RBC Morphology See below Polychromasia 1+ H Anisocytosis 1+ H Ovalocytes 1+ H Protivin Cells 2+ H Sodium 152 H Potassium 4.5 Chloride 120 H Carbon Dioxide 18 L BUN 142 H* Creatinine 4.56 H Estimated GFR 9.2 L BUN/Creatinine Ratio 31.1 H Glucose 134 H Lactate 4.0 H Calcium 8.7 Ferritin Total Bilirubin 1.2 AST 33 ALT 23 Alkaline Phosphatase 130 H Lactate Dehydrogenase Total Creatine Kinase 131 CK-MB (CK-2) 3.84 H CK-MB (CK-2) Rel Index 2.9 Troponin I 0.136 H* C-Reactive Protein NT-Pro-B Natriuret Pep Total Protein 6.2 L Albumin 2.8 L Globulin 3.4 Albumin/Globulin Ratio 0.8 L Procalcitonin Urine Color Urine Appearance Urine pH Ur Specific [place] Urine Protein Urine Glucose (UA) Urine Ketones Urine Occult Blood Urine Nitrate Urine Bilirubin Urine Urobilinogen Ur Leukocyte Esterase Urine RBC Urine WBC Urine Bacteria Ur Culture Indicated? SARS-CoV-2 (PCR) 02/16/20 06:14 WBC RBC Hgb Hct MCV MCH MCHC RDW Plt Count Neut % (Auto) Lymph % (Auto) [place] % (Auto) Eos % (Auto) Baso % (Auto) Lymph # (Auto) [place] # (Auto) Baso # (Auto) Total Counted Seg Neutrophils % Band Neutrophils % Lymphocytes % (Manual) Atypical Lymphs % Monocytes % (Manual) Metamyelocytes % Neutrophils # (Manual) Plt Morphology Comment RBC Morphology Polychromasia Anisocytosis Ovalocytes Protivin Cells Sodium Potassium Chloride Carbon Dioxide BUN Creatinine Estimated GFR BUN/Creatinine Ratio Glucose Lactate 2.9 H Calcium Ferritin Total Bilirubin AST ALT Alkaline Phosphatase Lactate Dehydrogenase Total Creatine Kinase CK-MB (CK-2) CK-MB (CK-2) Rel Index Troponin I C-Reactive Protein NT-Pro-B Natriuret Pep Total Protein Albumin Globulin Albumin/Globulin Ratio Procalcitonin Urine Color Urine Appearance Urine pH Ur Specific [place] Urine Protein Urine Glucose (UA) Urine Ketones Urine Occult Blood Urine Nitrate Urine Bilirubin Urine Urobilinogen Ur Leukocyte Esterase Urine RBC Urine WBC Urine Bacteria Ur Culture Indicated? SARS-CoV-2 (PCR) Assessment & Plan Assessment & Plan narrative: 84-year-old female admitted for probable urosepsis with acute renal failure, sepsis presumed from urinary tract, leukocytosis I was not able to get a hold of patient's . At this time based on conversation with emergency room physician as well as reviewing the notes and from the ER doctors discussion with the last night the plan is that patient has sepsis syndrome secondary to urinary tract infection with acute renal failure and multiorgan system involvement and has been does not want heroic effort but once treatment with IV fluids and antibiotics to see if this can be reversed. I will have this discussion with again. Patient's condition has not changed significantly. At this point I feel that survive ability is very low likelihood and meaningful recovery is low at this time. Options would be to continue antibiotics for another 24 hours and reassess versus switching to comfort care at this time. I will have this discussion with the . 60 minutes was spent with patient and discussion with ER physician and reviewing her records both from the hospital and the clinic. And discussing with nursing staff and plan of care. Assessment 1. Presumed urosepsis Plan: Blood pressure has improved. Still with borderline tachycardia. She is making good urine output. Lactate is down. Blood cultures are pending. Urine culture is pending. At this point I will continue ceftriaxone. I will discuss with her if that is his wishes to continue with antibiotic treatment. We will continue with supportive care. Assessment 2. Hypernatremia unclear if related to acute renal failure or sepsis syndrome or IV replacement with normal saline or all the above. Plan: We will switch to half-normal saline at 1:20 a.m. 5 cc an hour Assessment 3. Hypoxemia improved and resolved. Suspect related to severe dehydration and urosepsis Assessment 4. Acute renal failure suspect related to infection and dehydration, unchanged but making good urine output Plan: Will continue with IV fluids and reassess in a.m. Assessment 5. Elevated troponin I suspect related to infectious process and improved today. Plan we will recheck in a.m.. Assessment 6. Elevated BNP without evidence of congestive heart failure for hypoxemia at this time Plan: Will continue to monitor closely Assessment 7. Hypertension currently with hypotension. Plan: Will hold antihypertensive Currently code status is DNR, DNI COVID-19 COVID-19 status: Negative Result date/Date tested (Pos, Neg/Pending): 02/16/20 Quality VTE Deep Vein Thrombosis/Pulmonary Embolism Present on Admission: No
[2020-02-16] MEDS: SODIUM CHLORIDE 0.45% 1,000 ML 125 ML IV ×2 (08:32→16:54)
[2020-02-16 09:08] LABS: Lactate 2HR (Lactic Acid Rflx) 3.8 mmol/L (0.7-2.1)
[2020-02-16] MEDS: CEFTRIAXONE 1 GM/50 ML FROZ.PIGGY IV (10:03)
[2020-02-16] MEDS: MORPHINE 2 MG/ML INJ IV (11:24)
--- NOTE | 2020-02-16 15:36 | CM.DANOTE ---
Patient is an 84 year old female who was admitted on 02/16/20 for Low Oxygen. Pt has MCR and AARP for insurance and her PCPis Dr. Consuelo Buck. EMR was reviewed. Per MD, pt hx of recent hip fx and has dementia and admitted for renal failure. Per RN, pt has been calm and cooperative but only oriented to self but no behaviors and not very verbal. Pt resides at home with spouse who is her primary caregiver and pt was independent at baseline with ambulation but needs assist for ADL's which spouse successfully provides. They have an adult Dtr in [place] who is a Chiropractor. SW spoke with spouse via phone and explained role and spouse confirms that they live at home in [place] but closer to [facility]. Pt has hx of CVA in 2017 and went to [facility] and successfully completed Acute Inpt Rehab at [facility] and then discharged home with HH at that time. Pt has been doing well until her recent fall a couple months ago. Spouse had begun looking into private pay chucking machine operator and someone to help with bathing pt safely as pt preference is the deep bathtub although they have a walk in small shower. Spouse confirms that pt was discharged after her hip fx 12/20/19 after GLF to [facility] rehab and he felt things were going well until they called to say they were going to discharge her to LTC but didn't give me or my Dtr a reason for LTC. We decided to bring her home and they threatened to call APS. Spouse denies any APS involvement or understanding why SNF felt they didn't have a good plan for home. Spouse states they are currently open with [facility] and agreeable with HH Resuming at d/c if pt improves. Spouse aware that pt currently has a guarded prognosis pending her medical progress and confirmed with MD that pt DNR/DNI. Not officially Comfort care at this time. CORRY Dias kindly faxed and spoke with [facility] and confirmed they are open to service with the pt. Plan: SW to follow closely on pt progress towards determining plan of return home with spouse and Resume [facility] vs possible need for Hospice. VIRAL Amezquita Discharge Planning/Care Management CM Discharge Assessment Start: 02/16/20 15:29 Freq: Status: Active Protocol: Document 02/16/20 15:30 BF (Rec: 02/16/20 15:36 BF [id number]) Discharge Planning Assessment Assigned [employer] VIRAL Worrell/Assigned Designee Name spouse Rui Contact Information [phone] Advance Directives? No Advance Directives on File Yes History Provided By Significant Other,Medical Record Has Patient been admitted in last 30 No days? Comment Admitted about 2 months ago for hip fx and discharged to SNF Prior Living Arrangements House Household Members spouse Type of transporation used prior to Relies on Others admit Independent with ADL's No Is patient alert and oriented? No: dementia + Needs Assistance With Bathing,Meal Prep,Managing Medications,Home Chores / Shopping Caregiver for Another No Community Services used prior to Physical Therapy,Occupational admission: Therapy,Home Health Aid DME Already Rented / Owned Bath Bench,Hospital Bed,FWW / Walker Comment Pending pt's progress possibly return home with Resume HH vs Hospice Barriers to Discharge No Discharge Plan Home with Home Health Transportation Arrangement pending pt's progress Additional Comment Currrently open with [facility] Review Status In Process Please Provide Date Initial DC 02/16/20 Assessment Was Performed Next Review Type Continued Stay Review
--- NOTE | 2020-02-16 23:52 | PC.NURSE ---
shift note- Pt unresponsive, Q-2 turns @ 1700,1900, and 2039. Borges in place, so far no urine output at this time (1929). 97% RA, LS shallow and clear. HR ST-103. RR 18-20. RFA SL, VICKY midline 1/2 NS @ 100. Ahsan coma score-3. toes to both feet cyanotic and blanchable. 2109- In to check on pt and noticed no rise/fall to chest. No pulse to carotid by auscultation. Time of recorded 21:15. Dr. Carias, pt's Rui, and Hernandez called. Initialized on 02/16/20 23:04 - END OF NOTE
--- NOTE | 2020-02-17 11:03 | CM.DPNOTE ---
Faxed to [facility] DC Plan and nursing note of patient's expiration date/time so she is able to close out patient's account. Fax confirmation received. Larissa Ludwig CM Asst.
--- NOTE | 2020-02-25 20:51 | PM.DDS.1 ---
Discharge Summary History of Illness Narrative: This 84-year-old female whom was brought to the emergency room by her due to inability to take p.o. and having progressive decline in her condition. She was hospitalized December 20 for a hip fracture and had surgical repair and then apparently spent 40 days in skilled care facility. She was being visited yesterday by home health and they noted that she had decreased vitals and was reportedly not taking p.o. for several days and therefore her from Dr. covarrubias and we recommended that he go to the emergency department to have her evaluated. Oral room on presentation to the emergency department patient was found to be tachypneic and hypoxic with O2 sat in the 80s on room air. Patient was thought to have urosepsis with hypotension and hypoxemia and also leukocytosis and rule acute renal failure or with a GFR of 8. And her urine was significant for bacteria and blood cultures are pending. She received IV ceftriaxone and vancomycin. There was extended discussion with her and he wanted an attempt at reversing this with IV fluids and antibiotics only. He did not want heroics. He understood that admitting her to the hospital here we would be unable to do dialysis and he was clear that he did not want her heroic ?measures but did want IV fluid and antibiotics to see if this could be for reversed with this limited intervention. Overnight patient has had no change in her condition other than she is making urine. She had 450 cc out of her Borges catheter. She is afebrile. She is nonverbal. Past medical history: 1. Hypertension 2. Hyperlipidemia 3. Hypothyroidism 4. Dementia 5. Recent hip fracture Current medications amlodipine 5 mg daily, gemfibrozil 600 mg daily, levothyroxine 50 mcg daily a hydrochlorothiazide and lisinopril causes a cough Past surgical history: Surgical repair of hip fracture December 2019 Health related behavior Patient does not smoke through never was a smoker Patient does not use alcohol on a regular basis Social history: Patient lives over in a home with her in [facility]. Recently was discharged from skilled care facility . Patient has a daughter who lives in [facility] I believe Family history: I am unable to obtain at this time. Evaluation of previous H& P show no evidence of pertinent family history Review of systems: Patient has not had cough or shortness of breath Patient has not had bright red blood per rectum or black tarry stools Patient has not had a fever No rashes Reportedly patient has had progressive decline in her condition and progressive worsening p.o. intake. Hospital Course Date of Admission: 02/16/20 00:15 Date of : 02/17/20 Primary care provider: Consuelo Buck MD Consults: 02/16/20 00:16 Consult to Physician Stat Comment: Consulting Provider: Ines Robbins Reason for consultation: admission Has provider been notified: Yes 02/16/20 00:17 Consult to Physician Urgent Comment: Consulting Provider: Consuelo Buck Reason for consultation: admission Has provider been notified: No 02/16/20 08:55 Consult to Discharge Planning Routine Comment: Hospital Course: Patient was admitted to the hospital with urosepsis and severe acute renal failure. Lengthy discussion with both by the ER doctor and myself revealed that they wanted no resuscitation and no intubation but wanted attempts at IV fluids as well as IV antibiotics to see if these limited measures would change her severe condition. understood the severity of her illness and wanted her admitted here at [facility] . Patient was given IV fluids as well as IV antibiotics. She was given IV vancomycin in the ER and ceftriaxone which was continued. The patient's condition continued to deteriorate and and the patient approximately 24 hours after admission Objective Labs Result Diagrams: 02/16/20 06:14 02/16/20 06:14
== END 2020-02-16 22:50 | disposition expired | DRG 871 ==
LOC: ED 02-16 00:15 → AC 02-16 00:16
PROVIDERS: Admitting Provider Student in an Organized Health Care Education/Training Program; Emergency Provider Emergency Medicine; PCP Student in an Organized Health Care Education/Training Program; Referring Provider Emergency Medicine; Visit Provider Student in an Organized Health Care Education/Training Program
DX: A41.51 Sepsis due to Escherichia coli [E. coli] (principal); G93.41 Metabolic encephalopathy; N39.0 Urinary tract infection, site not specified; N17.9 Acute kidney failure, unspecified; E87.0 Hyperosmolality and hypernatremia; R65.20 Severe sepsis without septic shock; E86.0 Dehydration; I10 Essential (primary) hypertension; E78.5 Hyperlipidemia, unspecified; E03.9 Hypothyroidism, unspecified; R09.02 Hypoxemia; F03.90 Unspecified dementia, unspecified severity, without behavioral disturbance, psychotic disturbance, mood disturbance, and anxiety; R77.8 Other specified abnormalities of plasma proteins; Z20.822 Contact with and (suspected) exposure to COVID-19; Z66 Do not resuscitate
CPT/HCPCS: 36415; 51701; 51705; 70450; 71045; 80053; 81001; 82550; 82553; 82728; 83605; 83615; 83880; 84145; 84484; 85007; 85025; 86140; 87040; 87077; 87086; 87186; 87635; 93005; 94762; 96361; 96365; 96367; 96368; 99285; 99291; C9803; J2270; J7050